=== PATIENT | female | born 1930 | race Caucasian/White ===

== ENCOUNTER → 2016-08-09 | Outpatient (REF) | payer MEDICARE, MEDICAID ==
[~2016-08-09] MED LIST: ACET-654 PO; ACET650S3 PR; AMLO10TAB; AMLO5TAB2 PO; ARIC5TAB; ARTISOL2 OU; ASPI81TAEC PO; BABY81CH; DIOV320T; ENEMENE3 PR; GLUC1INJ11 INJ; GLUC500T; LIPI10TA; LOPR100T; LOSA100T36 PO; METF500T PO; METO-207 PO; METO-209 PO; MILKSUS PO; ONDA4TAB6 PO; PANT40TA2 PO; RANI150T PO; REME15TA PO; SUCR1TA PO; TOPR100T; ZOLO25TA
[2016-08-09 21:19] LABS: MEAN CORPUSCULAR HEMOGLOBIN 28.6 pg (27.0-33.0); MEAN CORPUSCULAR HGB CONC 32.7 g/dl (32.0-36.5); MEAN CORPUSCULAR VOLUME 87.7 fl (80.0-96.0); RED CELL DISTRIBUTION WIDTH 13.4 % (11.5-14.5); WHITE BLOOD COUNT 11.4 K/mm3 (4.0-10.0)
== END ==
LOC: SKLAB4 20:19
PROVIDERS: ATTEND Family Medicine
DX: R11.2 Nausea with vomiting, unspecified (principal)

== ENCOUNTER 2016-08-10 23:47 | Inpatient (IN) | payer MEDICARE, MEDICAID ==
[~2016-08-10] VITALS: Ht 167.6 cm; Wt 63.9 kg
[~2016-08-10 23:47] MED LIST changes: -ACET-654 PO; -ACET650S3 PR; -AMLO5TAB2 PO; -ARTISOL2 OU; -ASPI81TAEC PO; -ENEMENE3 PR; -GLUC1INJ11 INJ; -LOSA100T36 PO; -METF500T PO; -METO-207 PO; -METO-209 PO; -MILKSUS PO; -ONDA4TAB6 PO; -PANT40TA2 PO; -RANI150T PO; -REME15TA PO; -SUCR1TA PO
[2016-08-11 00:24] LABS: BASO % 0.2 % (0.0-1.0); EOS # 0.1 K/mm3 (0.0-0.50); LARGE UNSTAINED CELL # 0.1 K/mm3 (0.0-0.4); LYMPH # 0.9 K/mm3 (1.5-4.5); LYMPH % 8.8 % (24.0-44.0); MEAN CORPUSCULAR HEMOGLOBIN 28.8 pg (27.0-33.0); MEAN CORPUSCULAR HGB CONC 32.2 g/dl (32.0-36.5); MEAN CORPUSCULAR VOLUME 89.6 fl (80.0-96.0); MONO # 0.3 K/mm3 (0.0-0.8); MONO % 2.9 % (0.0-5.0); NEUTROPHILS # 8.5 K/mm3 (1.8-7.7); NEUTROPHILS % 86.1 % (36.0-66.0); PLATELET COUNT, AUTOMATED 253 k/mm3 (150-450); RED CELL DISTRIBUTION WIDTH 12.9 % (11.5-14.5); WHITE BLOOD COUNT 9.9 K/mm3 (4.0-10.0)
[2016-08-11] MEDS ORDERED: ONDANSETRON 4MG/2ML VIAL (J2405) As Ordered ONE (00:39)
[2016-08-11] MEDS ORDERED: PANTOPRAZOLE 40MG INJ (PROTONIX) (C9113) As Ordered ONE ×2 (00:39→07:37)
[2016-08-11 01:43] LABS: ALBUMIN 2.8 GM/DL (3.2-5.2); ALBUMIN/GLOBULIN RATIO 0.85 (1.00-1.93); ALKALINE PHOSPHATASE 94 U/L (45-117); ALT/SGPT 9 U/L (12-78); ANION GAP 18 MEQ/L (8-16); AST/SGOT 6 U/L (15-37); BILIRUBIN,DIRECT 0.2 MG/DL (0.0-0.2); BILIRUBIN,TOTAL 0.6 MG/DL (0.2-1.0); BLOOD UREA NITROGEN 70 MG/DL (7-18); CALCIUM LEVEL 8.5 MG/DL (8.8-10.2); CARBON DIOXIDE LEVEL 21 MEQ/L (21-32); CHLORIDE LEVEL 107 MEQ/L (98-107); CREATININE FOR GFR 2.04 MG/DL (0.55-1.02); GLOMERULAR FILTRATION RATE 24.6 (>32); GLUCOSE, FASTING 198 MG/DL (83-110); POTASSIUM SERUM 4.8 MEQ/L (3.5-5.1); SODIUM LEVEL 146 MEQ/L (136-145); TOTAL PROTEIN 6.1 GM/DL (6.4-8.2)
[2016-08-11] MEDS ORDERED: METO-209 PO (01:48)
[2016-08-11] MEDS ORDERED: ASPI81TAEC PO (01:48)
[2016-08-11] MEDS ORDERED: LOSA100T36 PO (01:48)
[2016-08-11] MEDS ORDERED: ACET-654 PO (01:48)
[2016-08-11] MEDS ORDERED: RANI150T PO (01:48)
[2016-08-11] MEDS ORDERED: METF500T PO (01:48)
[2016-08-11] MEDS ORDERED: REME15TA PO (01:48)
[2016-08-11] MEDS ORDERED: ACET650S3 PR (01:48)
[2016-08-11] MEDS ORDERED: ONDA4TAB6 PO (01:48)
[2016-08-11] MEDS ORDERED: AMLO5TAB2 PO (01:48)
[2016-08-11] MEDS ORDERED: ARTISOL2 OU (01:48)
[2016-08-11] MEDS ORDERED: ENEMENE3 PR (01:50)
[2016-08-11] MEDS ORDERED: GLUC1INJ11 INJ (01:50)
[2016-08-11] MEDS ORDERED: MILKSUS PO (01:50)
[2016-08-11 02:19] LABS: INR 1.06
[2016-08-11 05:00] VITALS: BP 118/57
[2016-08-11] MEDS: NS 1,000 ML IV SCH ×3 (05:21→23:21)
[2016-08-11] MEDS ORDERED: GLUCAGON FOR INJ 1 MG VIAL (J1610) SC PRN (06:45)
[2016-08-11] MEDS ORDERED: DEXTROSE 50% 50 ML SYRINGE IV PRN (06:45)
[2016-08-11] MEDS ORDERED: GLUCOSE 4 GM CHEW TABLET PO PRN (06:45)
[2016-08-11 07:30] LABS: CALCIUM LEVEL 8.2 MG/DL (8.8-10.2); CREATININE FOR GFR 1.88 MG/DL (0.55-1.02); GLOMERULAR FILTRATION RATE 27.1 (>32); POTASSIUM SERUM 4.3 MEQ/L (3.5-5.1)
[2016-08-11] MEDS: HumaLOG INSULIN (NovoLOG) PER UNIT SC SCH ×4 (07:30→20:30)
[2016-08-11] MEDS ORDERED: amLODIPine 5 MG TAB As Ordered ONE (07:36)
[2016-08-11] MEDS ORDERED: METOPROLOL TART 50 MG TAB As Ordered ONE (07:37)
[2016-08-11] MEDS: PANTOPRAZOLE 40MG INJ (PROTONIX) (C9113) IV SCH ×2 (07:48→20:30)
[2016-08-11] MEDS: amLODIPine 5 MG TAB PO SCH (07:49)
[2016-08-11 08:00] VITALS: BP 120/56
--- NOTE | 2016-08-11 08:12 | HPE ---
DATE OF ADMISSION: 08/11/2016 PRIMARY CARE PHYSICIAN: Dr. Kun Stevenson CHIEF COMPLAINT: Patient was sent from [facility] for several episodes of vomiting and one episode of coffee ground emesis. PAST MEDICAL HISTORY: 1. History of diabetes. 2. Hypertension. 3. Hyperlipidemia. 4. Dementia. 5. History of rectal cancer status post surgery with colostomy and vaginectomy. 6. History of deep vein thrombosis of the left leg, no longer on anticoagulation. 7. Depression. HISTORY OF PRESENT ILLNESS: This is an 85-year-old female who is a resident of [facility] who had several episodes of vomiting four days ago which resolved by itself. Then she started vomiting again today. After several episodes, she had one episode of vomiting with coffee ground emesis in it, so the patient was sent to the emergency room for evaluation. As per the daughters who are at bedside, the patient has been unable to keep food down since yesterday. In the emergency department (ED), the patient was found to have a stable hemoglobin; however, seemed to be dehydrated with a sodium of 146 and a creatinine of 2, which are both raised from baseline. The patient was started on IV fluids. During her stay in the emergency room, the patient did not have any further coffee ground emesis. The hospitalist service was consulted for admission for vomiting, dehydration and acute kidney injury and possibly coffee ground emesis. PAST SURGICAL HISTORY: 1. Hysterectomy. 2. Colostomy. 3. Surgery of rectum and colon for cancer. FAMILY HISTORY: She is a resident of [facility], has daughters living in town. SOCIAL HISTORY: She is a nonsmoker. Does not abuse alcohol or recreational drugs. HOME MEDICATIONS: - Tylenol 650 mg by mouth every 4 hours as needed - Tylenol 650 mg per rectum (AR) every 4 hours as needed - amlodipine 5 mg daily - Artificial Tears one solution both eyes four times a day - aspirin 81 mg daily - Glucagon 1 mg as directed - losartan potassium 100 mg by mouth daily - metformin 500 mg by mouth daily - metoprolol succinate 100 mg by mouth daily - milk of magnesia 30 mL by mouth daily as needed constipation - mirtazapine 15 mg at bedtime - ondansetron 4 mg by mouth every 6 hours as needed - ranitidine 1 mg by mouth twice a day - Fleet enema one enema daily as needed constipation REVIEW OF SYSTEMS: All ten point review of systems are negative except those mentioned in history of present illness (HPI). The patient denies any pain. Denies any diarrhea. Denies any abdominal pain. The patient denies any chest pain, any cough or phlegm. Denies any chills or fever. PHYSICAL EXAM: GENERAL: Patient awake, alert and oriented times 3, lying down on the stretcher in no acute distress. HEENT: Normocephalic, atraumatic. Dry mucous membranes. Anicteric eyes. CHEST: Clear to auscultation. CARDIOVASCULAR: S1, S2, regular. ABDOMEN: Soft. Nontender. Bowel sounds present. EXTREMITIES: No edema. LABORATORY DATA: WBC 9.9, hemoglobin 12.5, platelets 253. Sodium 146, potassium 4.8, chloride 107, bicarbonate 21, BUN 70, creatinine 2. Liver function tests (LFTs) are normal. Lipase 61. Cardiac enzymes are not elevated. Coagulation profile is normal. ASSESSMENT AND PLAN: This is an 85-year-old female admitted for intractable vomiting, dehydration, acute kidney injury and coffee ground emesis. 1. Vomiting and coffee ground emesis. Reason unknown. Could be due to gastritis or peptic ulcer disease versus viral infection. Will continue the patient on proton pump inhibitor (PPI) and ondansetron. 2. Dehydration. Will continue the patient on IV with normal saline. 3. Acute kidney injury due to intractable vomiting and dehydration. 4. Diabetes. Will continue the patient on sliding scale insulin. Will hold metformin while in the hospital. 5. Hypertension. Will hold losartan because of increased creatinine. Will continue with metoprolol and amlodipine. 6. Hyperlipidemia. Not on any medications. 7. Anxiety, depression and dementia. Will continue with mirtazapine. 8. Deep vein thrombosis (DVT) prophylaxis. Has been ordered. 9. Gastrointestinal (GI) prophylaxis. Has been ordered. 10. History of deep vein thrombosis, but most recent ultrasound in June does not show any deep vein thrombosis. Patient is not on any anticoagulation.
[2016-08-11] MEDS: METOPROLOL SUCC (TopROL XL) 50MG **XL** TAB PO SCH (08:51)
--- NOTE | 2016-08-11 11:17 | IPN ---
DATE: 08/11/2016 Brooke was seen in the emergency room (ER) on an interim bed. She was admitted with coffee ground emesis, presumed upper gastrointestinal (GI) bleed. I reviewed her old records available through [facility]. Most recent comprehensive evaluation was a preop done on 10/11/2015. At that time, she was having type 2 diabetes, hypertension, hyperlipidemia, and dementia. Surgical history was colostomy and colon resection in the for colon cancer. Allergies: None were known. Social History: [facility] resident since 02/2012. Nonsmoker. . Outpatient medicines included aspirin as well as metoprolol and amlodipine, metformin, Remeron and losartan, as well as, Artificial Tears. Physical Exam: Vital Signs per flow sheet. Blood pressure 125/85, pulse 80, when I saw her. General Appearance: She was nonverbal. She was drowsy. HEENT: Unremarkable. Bilateral soft carotid bruits. Lungs: Clear. Heart: Regular rate and rhythm. 1/6 systolic ejection murmur. Abdomen: Soft. Nontender. No masses. No peripheral edema. Labs: Admission hemoglobin 12.5, after hydration six hours later was 11. INR was normal. Sodium 145, potassium 4.3, BUN 69, creatinine 1.9. Bicarbonate was 19. Impression: 1. Presumed upper GI bleed with coffee ground emesis. She is on IV Protonix 40 mg every 12 hours. She is currently nothing by mouth (n.p.o.). If her hemoglobin and hematocrit (H and H) remains stable, she won't require transfusion. We will consult gastroenterology, though I am not sure that she needs to proceed to esophagogastroduodenoscopy (EGD), but will defer to their opinion on this. 2. Acute kidney injury. Baseline creatinine is 0.9. Some of this might be from the metformin. She is getting normal saline 100 an hour. That should be sufficient to provide enough hydration at her age. Recheck labs in the morning. 3. Dementia. Stable. 4. Hypertension. She is on amlodipine and metoprolol. Pressures are steady. 5. Advanced directives. Per admitting physician, she has DO NOT RESUSCITATE (DNR) status. I do not see where that was ordered. Her paper chart cannot be located right now. I will have to confirm the DNR status once we get our hands on her [facility] Keep records.
--- NOTE | 2016-08-11 13:56 | EDDOCDS ---
Physician Documentation [facility] Name: Brooke Tanner Age: 85 yrs Sex: Female : 1930 Arrival Date: 08/10/2016 Time: 23:47 Bed Admit Hold Private MD: Kun Stevenson M.D. Disposition: 08/11/16 01:56 Hospitalization ordered by Yadira Stewart for Inpatient Admission. Preliminary diagnosis are Hematemesis, Unspecified injury of kidney. - Bed requested for 4 [place]. - Status is Inpatient Admission. dwg - Condition is Stable. - Problem is new. - Symptoms have improved. Historical: - Allergies: no known allergies; - Home Meds: 1. ranitidine HCl 150 mg Oral cap 1 cap 2 times per day 2. ondansetron HCl 4 mg Oral tab every 6 hours (Last dose: 08/10/2016 22:00) 3. Cozaar 100 mg Oral tab 1 tab once daily 4. Remeron 15 mg Oral tab 1 tab once daily 5. artificial tears(hypromellose) 0.3 % Opht drop 1 drop four times a day (Last dose: 08/10/2016 22:49) 6. metformin 500 mg Oral Tb24 1 tab once daily (Last dose: 08/10/2016 08:31) 7. Tylenol 325 mg Oral tab 2 tabs every 4 hours (Last dose: 08/10/2016 06:53) 8. Norvasc 5 mg oral tab 1 tab once daily 9. aspirin 81 mg Oral tab 1 tab once daily 10. metoprolol tartrate 100 mg Oral tab 1 tab once daily (Last dose: 08/10/2016 08:31) 11. fleets enema 1 unit daily as needed 12. Milk of Magnesia 2400 mg/10 ml Oral 10 mL once daily - PMHx: Hypercholesterolemia; Dementia; dysphagia; Diabetes - NIDDM: controlled; Depression; Hypertension; hyperlipidemia; - PSHx: COLOSTOMY; Colon Resection (2001); - Family history: Not pertinent. - : The pt / caregiver states he / she is not on anticoagulants. Home medication list is obtained from the facility SEP. - Exposure Risk Screening:: None identified. Vital Signs: 08/10 23:53 BP 110 / 62 LA Supine (auto/reg); Pulse 103 MON; Resp 22 S; Temp 98.3(O); Pulse Ox 92% cln on R/A; Weight 63.5 kg / 139.99 lbs (R); Height 5 ft. 8 in. (172.72 cm) (R); Pain 0/10; 08/11 02:22 BP 145 / 65 (auto/); af2 02:22 Pulse 98 MON; Pulse Ox 95% ; af2 03:22 BP 138 / 64 (auto/); af2 03:22 Pulse 94 MON; Pulse Ox 92% ; af2 08/10 23:53 Body Mass Index 21.29 (63.50 kg, 172.72 cm) cln MDM: 08/10 23:58 NS 0.9% 1000 ml IV at bolus once ordered. fg 23:58 Ondansetron 4 mg IVP once ordered. fg 23:58 IV Saline Lock ordered. fg 23:58 Undress patient appropriately for examination ordered. fg 23:58 pantoprazole 40 mg IV at bolus once ordered. fg 23:59 Basic Metabolic Profile Ordered. EDMS 23:59 CBC with Diff Ordered. EDMS 23:59 Cardiac Injury Profile Ordered. EDMS 23:59 Lipase Ordered. EDMS 23:59 Liver Profile Ordered. EDMS 23:59 Troponin Ordered. EDMS 23:59 Type & Screen Ordered. EDMS 23:59 Urinalysis Ordered. EDMS 23:59 Urine Culture Ordered. EDMS 23:59 NOTHING BY MOUTH+DIET ordered. EDMS 08/11 01:14 PROTHROMBIN TIME PROFILE\E\INR Ordered. EDMS 01:18 BED REQUEST+ADM ordered. EDMS 01:42 Financial registration complete. hs2 01:42 [facility] Payment Agreement was scanned into [employer] and attached to record. hs2 01:55 BED REQUEST+ADM ordered. EDMS 02:40 Admission / Observation Status ordered. EDMS 02:40 OTHER CUSTOM DIETS ordered. EDMS 02:44 HEMOGLOBIN & HEMATOCRIT Ordered. EDMS 02:44 BASIC METABOLIC PROFILE Ordered. EDMS 11:05 COMPLETE BLOOD COUNT Ordered. EDMS 13:33 T-Sheet-- Draft Copy was scanned into [employer] and attached to record. gb Administered Medications: 00:47 Drug: NS 0.9% 1000 ml [sodium chloride 0.9 % intravenous solution] Route: IV; Rate: af2 bolus; Site: right wrist; 00:47 Drug: Ondansetron 4 mg [ondansetron HCl 2 mg/mL intravenous solution (2 mL)] Route: af2 IVP; Site: right wrist; 00:47 Drug: pantoprazole 40 mg [pantoprazole 40 mg intravenous solution] Route: IV; Rate: af2 bolus; Site: right wrist; Signatures: Dispatcher [employer] EDMS Gage Jessica, Steam Table Associate Unit deg Kyle Rodriguez RN RN dwg Susan Pelayo, Reg Reg gb Beatriz Towsnend RN RN dsf Fulton, Amber, RN RN af2 Shelly Vicente MD MD Tomeka Metzger, Reg Reg hs2 The chart was reviewed and I authenticate all verbal orders and agree with the evaluation and treatment provided.Corrections: (The following items were deleted from the chart) 01:14 08/10 23:59 PARTIAL THROMBOPLASTIN TIME+LAB ordered. EDMS EDMS 08/11 11:04 02:44 HEMOGLOBIN & HEMATOCRIT ordered. EDMS EDMS 11:05 02:44 HEMOGLOBIN & HEMATOCRIT ordered. EDMS EDMS Attachments: 01:42 [facility] Payment Agreement hs2 13:33 T-Sheet-- Draft Copy gb MTDD
--- NOTE | 2016-08-11 13:56 | EDDOCDS ---
Nurse's Notes [facility] Name: Brooke Tanner Age: 85 yrs Sex: Female : 1930 Arrival Date: 08/10/2016 Time: 23:47 Bed Admit Hold Private MD: Kun Stevenson M.D. Diagnosis: Hematemesis;Unspecified injury of kidney Presentation: 08/10 23:51 Presenting complaint: EMS states: pt sent from [facility] due to coffee ground emesis x 2 af2 days. Suicide/Homicide risk assessment- the patient denies having any suicidal and/or homicidal ideations and does not present with any other emotional, behavioral or mental health complaints. Status: Patient is not a stamp machine servicer or dependent. Transition of care: patient was received from [facility]. 23:51 Method Of Arrival: Ambulance af2 08/11 00:19 Adult Sepsis Screening: The patient does not have new or worsening altered mentation. af2 Patient has a respiratory rate of greater than or equal to 22 (1 point). Systolic blood pressure is greater than 100. Patient has a qSOFA score of 1- Negative Sepsis Screen. 00:19 Acuity: RANDAL Level 3 af2 Triage Assessment: 08/10 23:51 General: Appears in no apparent distress, comfortable, Behavior is appropriate for age, af2 cooperative. Pain: Denies pain. The patient is triaged at the bedside. See Assessment in Nurses Notes section of ED record. Neurological: Level of Consciousness is awake, alert, obeys commands, Oriented to person, place, time. Respiratory: Airway is patent Respiratory effort is even, unlabored. GI: Reports nausea, vomiting. Derm: Skin is normal. Historical: - Allergies: no known allergies; - Home Meds: 1. ranitidine HCl 150 mg Oral cap 1 cap 2 times per day 2. ondansetron HCl 4 mg Oral tab every 6 hours (Last dose: 08/10/2016 22:00) 3. Cozaar 100 mg Oral tab 1 tab once daily 4. Remeron 15 mg Oral tab 1 tab once daily 5. artificial tears(hypromellose) 0.3 % Opht drop 1 drop four times a day (Last dose: 08/10/2016 22:49) 6. metformin 500 mg Oral Tb24 1 tab once daily (Last dose: 08/10/2016 08:31) 7. Tylenol 325 mg Oral tab 2 tabs every 4 hours (Last dose: 08/10/2016 06:53) 8. Norvasc 5 mg oral tab 1 tab once daily 9. aspirin 81 mg Oral tab 1 tab once daily 10. metoprolol tartrate 100 mg Oral tab 1 tab once daily (Last dose: 08/10/2016 08:31) 11. fleets enema 1 unit daily as needed 12. Milk of Magnesia 2400 mg/10 ml Oral 10 mL once daily - PMHx: Hypercholesterolemia; Dementia; dysphagia; Diabetes - NIDDM: controlled; Depression; Hypertension; hyperlipidemia; - PSHx: COLOSTOMY; Colon Resection (2001); - Family history: Not pertinent. - : The pt / caregiver states he / she is not on anticoagulants. Home medication list is obtained from the facility MAR. - Exposure Risk Screening:: None identified. Screenin/12 00:12 Screening information is obtained from prior medical records. Fall risk: At risk due to dsf age, The following interventions are performed due to a positive Fall Risk Screen: Fall Risk is added to Special Handling on the patient Summary Screen. A Fall Risk Bracelet was applied to the patient. Side Rails are placed in the up position. A Call Anderson is given with instruction to call for help when getting out of bed. Fall Alert bracelet is placed on the patient. Assistance ADL's: Requires assistance with meal preparation, this assistance is provided by residence staff, bathing, assistance is provided by residence staff, dressing, assistance is provided by residence staff, toileting, assistance is provided by residence staff, ambulation, assistance is provided by residence staff, housework, assistance is provided by residence staff, medication administration, assistance is provided by residence staff. Abuse/DV Screen: The patient / caregiver reports he/she is: not in a situation that causes fear, pain or injury. Nutritional screening: No deficits noted. Advance Directives: Currently, there is a health care proxy, Carolyn Tanner. There is an active DNR order and the pt has a copy here at this time. home support is adequate. Assessment: 00:20 General: Appears in no apparent distress, comfortable, Behavior is appropriate for age, af2 cooperative. Pain: Denies pain. Neurological: Level of Consciousness is awake, alert, obeys commands, Oriented to person, place. Cardiovascular: Heart tones S1 S2 present. Respiratory: Airway is patent Respiratory effort is even, unlabored, Respiratory pattern is regular, symmetrical, Breath sounds are clear bilaterally. GI: Abdomen is non- distended Bowel sounds present X 4 quads. Abd is soft and non tender X 4 quads. Reports nausea, vomiting, coffee ground emesis. Derm: Skin is normal. 01:20 General: Appears in no apparent distress, comfortable, Behavior is appropriate for age, af2 cooperative. Neurological: Level of Consciousness is awake, alert, obeys commands, Oriented to person, place. Respiratory: Airway is patent Respiratory effort is even, unlabored. GI: Denies nausea. Derm: Skin is normal. 02:26 General: Appears in no apparent distress, comfortable, Behavior is appropriate for age, af2 cooperative. Neurological: Level of Consciousness is awake, alert, obeys commands, Oriented to person, place. Respiratory: Airway is patent Respiratory effort is even, unlabored. Derm: Skin is normal. 03:36 General: Appears in no apparent distress, comfortable, Behavior is appropriate for age, af2 cooperative. Neurological: Level of Consciousness is awake, alert, obeys commands. Respiratory: Airway is patent Respiratory effort is even, unlabored, Respiratory pattern is regular, symmetrical. Derm: Skin is normal. 04:17 General: Appears in no apparent distress, comfortable, Behavior is appropriate for age, af2 cooperative. Neurological: Level of Consciousness is awake, alert, obeys commands, Oriented to person, place. Respiratory: Airway is patent Respiratory effort is even, unlabored. Derm: Skin is normal. 04:42 General: report given to ana hines. for further documentation, refer to [facility].. af2 Vital Signs: 08/10 23:53 BP 110 / 62 LA Supine (auto/reg); Pulse 103 MON; Resp 22 S; Temp 98.3(O); Pulse Ox 92% cln on R/A; Weight 63.5 kg (R); Height 5 ft. 8 in. (172.72 cm) (R); Pain 0/10; 08/11 02:22 BP 145 / 65 (auto/); af2 02:22 Pulse 98 MON; Pulse Ox 95% ; af2 03:22 BP 138 / 64 (auto/); af2 03:22 Pulse 94 MON; Pulse Ox 92% ; af2 01/11 23:53 Body Mass Index 21.29 (63.50 kg, 172.72 cm) cln ED Course: 08/10 23:49 Patient visited by Lam Flynn, Sand Drier. ml3 23:49 Kun Stevenson is Private Physician. ml3 23:49 Anita Rojas RN is Primary Nurse. ml3 23:49 Patient moved to Waiting ml3 23:49 Patient moved to 8 ml3 23:54 Patient visited by Kindra Person PCA. cln 23:54 Pt greeted and oriented to ED. Patient advised of names of staff involved in care, cln location of call anderson, wait times and NPO status. Patient has correct armband on for positive identification. Placed in gown. Bed in low position. Call light in reach. Side rails up X 1. 23:56 Shelly Vciente MD is Attending Physician. fg 23:57 Patient visited by Shelly Vicente MD. fg 08/11 00:19 Triage Initiated af2 00:19 The patient / caregiver is instructed regarding the plan of care and ED course. Cardiac af2 monitor on. Pulse ox on. NIBP on. 00:19 Inserted saline lock: 20 gauge in right antecubital area and blood collected. The af2 patient tolerated the procedure well. 00:21 Patient visited by Anita Rojas RN. af2 00:48 Patient visited by Anita Rojas RN. af2 00:48 No procedures done that require assistance. af2 01:42 [facility] Payment Agreement was scanned into [employer] and attached to record. hs2 01:44 Patient visited by Anita Rojas RN. af2 01:47 Patient name changed from Brooke\S\\S\Mathous\S\ to Brooke\S\ \S\Mathous. EDMS 01:55 Yadira Stewart is Hospitalizing Provider. fg 01:56 Patient visited by Anita Rojas RN. af2 01:56 Patient visited by Anita Rojas RN. af2 02:27 Patient visited by Anita Rojas RN. af2 02:44 Patient moved to Admit Hold cz 03:37 Patient visited by Anita Rojas RN. af2 04:18 Patient visited by Anita Rojas RN. af2 04:42 Patient visited by Anita Rojas RN. af2 06:59 Primary Nurse role handed off by Anita Rojas RN mcp 09:03 notified of Patients O2 sats going down to 88% on RA with good pleth. Notified Aspen Raines RN. 12:38 Patient moved to 30 ct3 13:07 Patient moved to Admit Hold jo3 13:33 T-Sheet-- Draft Copy was scanned into [employer] and attached to record. gb Administered Medications: 00:47 Drug: NS 0.9% 1000 ml [sodium chloride 0.9 % intravenous solution] Route: IV; Rate: af2 bolus; Site: right wrist; 00:47 Drug: Ondansetron 4 mg [ondansetron HCl 2 mg/mL intravenous solution (2 mL)] Route: af2 IVP; Site: right wrist; 00:47 Drug: pantoprazole 40 mg [pantoprazole 40 mg intravenous solution] Route: IV; Rate: af2 bolus; Site: right wrist; Order Results: Lab Order: Basic Metabolic Profile; [facility] 08/11/16 00:36 Test: GLUCOSE, FASTING; Value: 198; Range: 83-110; Abnormal: Above high normal; Units: MG/DL; Status: F Test: BLOOD UREA NITROGEN; Value: 70; Range: 7-18; Abnormal: Above high normal; Units: MG/DL; Status: F Test: CREATININE FOR GFR; Value: 2.04; Range: 0.55-1.02; Abnormal: Above high normal; Units: MG/DL; Status: F Test: GLOMERULAR FILTRATION RATE; Value: 24.6; Range: >32; Abnormal: Below low normal; Status: F Test: SODIUM LEVEL; Value: 146; Range: 136-145; Abnormal: Above high normal; Units: MEQ/L; Status: F Test: POTASSIUM SERUM; Value: 4.8; Range: 3.5-5.1; Units: MEQ/L; Status: F Test: CHLORIDE LEVEL; Value: 107; Range: 98-107; Units: MEQ/L; Status: F Test: CARBON DIOXIDE LEVEL; Value: 21; Range: 21-32; Units: MEQ/L; Status: F Test: ANION GAP; Value: 18; Range: 8-16; Abnormal: Above high normal; Units: MEQ/L; Status: F Test: CALCIUM LEVEL; Value: 8.5; Range: 8.8-10.2; Abnormal: Below low normal; Units: MG/DL; Status: F Test Note: ; Units are mL/min/1.73 m2 Chronic Kidney Disease Staging per NKF: Stage I & II GFR >=60 Normal to Mildly Decreased Stage III GFR 30-59 Moderately Decreased Stage IV GFR 15-29 Severely Decreased Stage V GFR <15 Very Little GFR Left ESRD GFR <15 on UPHOLSTERY CUTTER Lab Order: CBC with Diff; SPEC'M 08/11/16 00:14 Test: WHITE BLOOD COUNT; Value: 9.9; Range: 4.0-10.0; Units: K/mm3; Status: F Test: RED BLOOD COUNT; Value: 4.33; Range: 4.00-5.40; Units: M/mm3; Status: F Test: HEMOGLOBIN; Value: 12.5; Range: 12.0-16.0; Units: g/dl; Status: F Test: HEMATOCRIT; Value: 38.8; Range: 36.0-47.0; Units: %; Status: F Test: MEAN CORPUSCULAR VOLUME; Value: 89.6; Range: 80.0-96.0; Units: fl; Status: F Test: MEAN CORPUSCULAR HEMOGLOBIN; Value: 28.8; Range: 27.0-33.0; Units: pg; Status: F Test: MEAN CORPUSCULAR HGB CONC; Value: 32.2; Range: 32.0-36.5; Units: g/dl; Status: F Test: RED CELL DISTRIBUTION WIDTH; Value: 12.9; Range: 11.5-14.5; Units: %; Status: F Test: PLATELET COUNT, AUTOMATED; Value: 253; Range: 150-450; Units: k/mm3; Status: F Test: NEUTROPHILS %; Value: 86.1; Range: 36.0-66.0; Abnormal: Above high normal; Units: %; Status: F Test: LYMPH %; Value: 8.8; Range: 24.0-44.0; Abnormal: Below low normal; Units: %; Status: F Test: MONO %; Value: 2.9; Range: 0.0-5.0; Units: %; Status: F Test: EOS %; Value: 1.0; Range: 0.0-3.0; Units: %; Status: F Test: BASO %; Value: 0.2; Range: 0.0-1.0; Units: %; Status: F Test: LARGE UNSTAINED CELL %; Value: 1.0; Range: 0.0-4.0; Units: %; Status: F Test: NEUTROPHILS #; Value: 8.5; Range: 1.8-7.7; Abnormal: Above high normal; Units: K/mm3; Status: F Test: LYMPH #; Value: 0.9; Range: 1.5-4.5; Abnormal: Below low normal; Units: K/mm3; Status: F Test: MONO #; Value: 0.3; Range: 0.0-0.8; Units: K/mm3; Status: F Test: EOS #; Value: 0.1; Range: 0.0-0.50; Units: K/mm3; Status: F Test: BASO #; Value: 0.0; Range: 0.0-0.2; Units: K/mm3; Status: F Test: LARGE UNSTAINED CELL #; Value: 0.1; Range: 0.0-0.4; Units: K/mm3; Status: F Lab Order: Cardiac Injury Profile; SPEC'M 08/11/16 00:36 Test: CPK CREATINE PHOSPHOKINASE; Value: 25; Range: 26-192; Abnormal: Below low normal; Units: U/L; Status: F Test: CK-MB VALUE MASS; Value: 1.1; Range: 0.0-3.6; Units: NG/ML; Status: F Test: MB/CK RELATIVE INDEX; Value: 4.40; Range: < OR =4; Abnormal: Above high normal; Status: F Test Note: ; DIAGNOSIS CRITERIA MMB ng/ml Relative Index (RI) NON-AMI < or = 5 N/A LOPEZ ZONE > 5 < or = 4 AMI > 5 > 4 Lab Order: Lipase; SPEC'M 08/11/16 00:36 Test: LIPASE; Value: 61; Range: 73-393; Abnormal: Below low normal; Units: U/L; Status: F Lab Order: Liver Profile; SPEC'M 08/11/16 00:36 Test: AST/SGOT; Value: 6; Range: 15-37; Abnormal: Below low normal; Units: U/L; Status: F Test: ALT/SGPT; Value: 9; Range: 12-78; Abnormal: Below low normal; Units: U/L; Status: F Test: ALKALINE PHOSPHATASE; Value: 94; Range: 45-117; Units: U/L; Status: F Test: BILIRUBIN,TOTAL; Value: 0.6; Range: 0.2-1.0; Units: MG/DL; Status: F Test: BILIRUBIN,DIRECT; Value: 0.2; Range: 0.0-0.2; Units: MG/DL; Status: F Test: TOTAL PROTEIN; Value: 6.1; Range: 6.4-8.2; Abnormal: Below low normal; Units: GM/DL; Status: F Test: ALBUMIN; Value: 2.8; Range: 3.2-5.2; Abnormal: Below low normal; Units: GM/DL; Status: F Test: ALBUMIN/GLOBULIN RATIO; Value: 0.85; Range: 1.00-1.93; Abnormal: Below low normal; Status: F Lab Order: Troponin; SPEC'M 08/11/16 00:36 Test: TROPONIN I; Value: < 0.02; Range: < 0.10; Units: NG/ML; Status: F Test Note: ; Troponin I Reference Interval for Siemens [place] LOCI: 99th Percentile= 0.00-0.045 ng/ml Risk Stratification: <= 0.10 ng/ml Decreased Risk for Adverse Clinical Events. 0.10-1.50 ng/ml Increased Risk for Adverse Clinical Events. Evaluation of additional criterion and/or repeat testing in 2-6 hours is suggested to rule out myocardial damage. >= 1.50 ng/ml Indicative of Myocardial Injury. Lab Order: Type & Screen; SPEC'M 08/11/16 00:43 Test: BLOOD TYPE; Value: A POS; Status: F Test: AB SCREEN (INDIRECT TANVIR)GEL; Value: NEGATIVE; Status: F Lab Order: PROTHROMBIN TIME PROFILE\E\INR; SPEC'M 08/11/16 02:02 Test: PROTHROMBIN TIME; Value: 13.9; Range: 12.3-14.5; Units: SECONDS; Status: F Test: INR; Value: 1.06; Status: F Test Note: ; THERAPUTIC HUMAN INR VALUES INDICATIONS NORMAL RANGES PROPHYLAXIS/TREATMENT OF: VENOUS THROMBOSIS 2.0-3.0 PULMONARY EMBOLISM 2.0-3.0 PREVENTION OF SYSTEMIC EMBOLISM FROM: TISSUE HEART VALVES 2.0-3.0 ACUTE MYOCARDIAL INFARCTION 2.0-3.0 VALVULAR HEART DISEASE 2.0-3.0 ATRIAL FIBRILLATION 2.0-3.0 MECHANICAL VALVES(HIGH RISK) 2.5-3.5 RECURRENT MYOCARDIAL INFARCTION 2.5-3.5 Lab Order: HEMOGLOBIN & HEMATOCRIT; [facility] 08/11/16 06:57 Test: HEMOGLOBIN; Value: 11.0; Range: 12.0-16.0; Abnormal: Below low normal; Units: g/dl; Status: F Test: HEMATOCRIT; Value: 33.2; Range: 36.0-47.0; Abnormal: Below low normal; Units: %; Status: F Lab Order: BASIC METABOLIC PROFILE; [facility] 08/11/16 06:57 Test: GLUCOSE, FASTING; Value: 159; Range: 83-110; Abnormal: Above high normal; Units: MG/DL; Status: F Test: BLOOD UREA NITROGEN; Value: 69; Range: 7-18; Abnormal: Above high normal; Units: MG/DL; Status: F Test: CREATININE FOR GFR; Value: 1.88; Range: 0.55-1.02; Abnormal: Above high normal; Units: MG/DL; Status: F Test: GLOMERULAR FILTRATION RATE; Value: 27.1; Range: >32; Abnormal: Below low normal; Status: F Test: SODIUM LEVEL; Value: 145; Range: 136-145; Units: MEQ/L; Status: F Test: POTASSIUM SERUM; Value: 4.3; Range: 3.5-5.1; Units: MEQ/L; Status: F Test: CHLORIDE LEVEL; Value: 111; Range: 98-107; Abnormal: Above high normal; Units: MEQ/L; Status: F Test: CARBON DIOXIDE LEVEL; Value: 19; Range: 21-32; Abnormal: Below low normal; Units: MEQ/L; Status: F Test: ANION GAP; Value: 15; Range: 8-16; Units: MEQ/L; Status: F Test: CALCIUM LEVEL; Value: 8.2; Range: 8.8-10.2; Abnormal: Below low normal; Units: MG/DL; Status: F Test Note: ; Units are mL/min/1.73 m2 Chronic Kidney Disease Staging per NKF: Stage I & II GFR >=60 Normal to Mildly Decreased Stage III GFR 30-59 Moderately Decreased Stage IV GFR 15-29 Severely Decreased Stage V GFR <15 Very Little GFR Left ESRD GFR <15 on UPHOLSTERY CUTTER Lab Order: Fingerstick Blood Sugar; SPEC'M 08/11/16 11:31 Test: BEDSIDE GLUCOSE; Value: 128; Range: 83-110; Abnormal: Above high normal; Units: MG/DL; Status: F Outcome: 01:56 Decision to Hospitalize by Provider. fg 13:[address] [facility] Signatures: Dispatcher [employer] Kyle Ramirez RN Carolyn Gonzales RN RN mcp Zecher, Calvin, RN RN cz Barnhardt, Gloria, Reg Reg gb Gee, Lam, Sand Drier Unit ml3 Danielle Mejia,RN RN jo3 Sonia Raymundo, FIELD EVIDENCE TECHNICIAN FIELD EVIDENCE TECHNICIAN ct3 Beatriz Townsend,RN Danielle Stern,RN RN js13 Anita Rojas,RN RN jovanna2 Shelly Vicente MD MD Tomeka Metzger, Reg Reg hs2 Raza, Kindra, FIELD EVIDENCE TECHNICIAN FIELD EVIDENCE TECHNICIAN cln MTDD
[2016-08-11 19:44] LABS: MEAN CORPUSCULAR HEMOGLOBIN 28.4 pg (27.0-33.0); MEAN CORPUSCULAR HGB CONC 31.5 g/dl (32.0-36.5); MEAN CORPUSCULAR VOLUME 90.2 fl (80.0-96.0); RED CELL DISTRIBUTION WIDTH 13.8 % (11.5-14.5); WHITE BLOOD COUNT 8.2 K/mm3 (4.0-10.0)
[2016-08-11 20:20] VITALS: BP 145/63
[2016-08-11] MEDS: SUCRALFATE SUSP 1GM/10ML UD PO SCH ×2 (20:30→20:37)
[2016-08-12 05:25] VITALS: BP 159/75
[2016-08-12 06:28] LABS: BASO % 0.2 % (0.0-1.0); EOS % 0.4 % (0.0-3.0); LARGE UNSTAINED CELL # 0.1 K/mm3 (0.0-0.4); LARGE UNSTAINED CELL % 1.4 % (0.0-4.0); LYMPH # 0.8 K/mm3 (1.5-4.5); LYMPH % 14.8 % (24.0-44.0); MEAN CORPUSCULAR HEMOGLOBIN 29.1 pg (27.0-33.0); MEAN CORPUSCULAR HGB CONC 31.9 g/dl (32.0-36.5); MEAN CORPUSCULAR VOLUME 91.2 fl (80.0-96.0); MONO # 0.3 K/mm3 (0.0-0.8); MONO % 5.1 % (0.0-5.0); NEUTROPHILS # 4.4 K/mm3 (1.8-7.7); NEUTROPHILS % 78.1 % (36.0-66.0); PLATELET COUNT, AUTOMATED 194 k/mm3 (150-450); WHITE BLOOD COUNT 5.6 K/mm3 (4.0-10.0)
[2016-08-12 06:39] LABS: CREATININE FOR GFR 1.45 MG/DL (0.55-1.02); GLOMERULAR FILTRATION RATE 36.5 (>32); POTASSIUM SERUM 3.9 MEQ/L (3.5-5.1)
[2016-08-12] MEDS: HumaLOG INSULIN (NovoLOG) PER UNIT SC SCH ×4 (07:23→21:00)
[2016-08-12] MEDS: PANTOPRAZOLE 40MG INJ (PROTONIX) (C9113) IV SCH ×2 (08:05→20:27)
[2016-08-12] MEDS: ONDANSETRON 4MG/2ML VIAL (J2405) IV PRN ×2 (08:05→20:27)
[2016-08-12] MEDS: METOPROLOL SUCC (TopROL XL) 50MG **XL** TAB PO SCH ×2 (08:07→08:13)
[2016-08-12] MEDS: NS 1,000 ML IV SCH (08:07)
[2016-08-12] MEDS: amLODIPine 5 MG TAB PO SCH ×2 (08:07→08:13)
[2016-08-12] MEDS: SUCRALFATE SUSP 1GM/10ML UD PO SCH ×2 (08:07→21:00)
--- NOTE | 2016-08-12 11:03 | IPNPDOC ---
Assessment/Plan Date Seen The patient was seen on 08/12/16. Problems Problems: (1) TAMMI (acute kidney injury) Status: Acute Response to Treatment: Improving Problem Text: Renal Function improving with IVF, but sodium has gone up so I will adjust IVF (2) Vomiting Status: Acute Problem Text: Dr. Nava saw patient in consultation (note not available yet , but per nursing report, he does not want to scope her) He added Carafate, but pt refusing all po meds. (3) HTN (hypertension) Status: Chronic Problem Text: Pt refusing po meds - BP stable so far (4) Anemia Status: Acute Response to Treatment: Worse Problem Text: Hgb has drifted down - likely dilutional Monitor trend Plan / VTE VTE Prophylaxis Ordered?: Yes (SCDs/TEDS - hold off on anticoaguilation until hgb trend stabilizes and no sign of bleeding) Disposition Back to [facility] once stable Subjective Review of Systems CC/HPI The patient is a 85-year-old female admitted with a reason for visit of Vomiting ,Acute Kidney Injury. Events since last encounter C/O feeling thirsty but worried she will vomit. C/O abdominal pain. REfusing meds. spitting them back out at nurses telling them she is nauseated. Constitutional: Denies: Chills, Fever Pulmonary: Denies: Cough, Dyspnea Cardiovascular: Denies: Chest Pain, Palpitations Gastrointestinal: Reports: Abdominal Pain, Nausea, Vomiting, Denies: Constipation, Diarrhea Objective Physical Examination General Exam: Positive: Alert (sitting up in chair in hallway - pleasantly confused) ENT Exam: Negative: Mucous membr. moist/pink (mucous membranes dry) Chest Exam: Positive: Clear to auscultation, Normal air movement Heart Exam: Positive: Rate Normal, Negative: Murmurs Abdomen Exam: Positive: Normal bowel sounds, Soft, Tenderness (tender epigastrum with minimal palpation) Extremity Exam: Negative: Edema Skin Exam: Negative: Nl turgor and temperature (poor skin turgor) Vital Signs/I&O Vital Signs Date Time Temp Pulse Resp B/P Pulse Ox O2 Delivery O2 Flow Rate FiO2 08/12/16 05:25 96.5 83 17 159/75 91 Room Air I&O- Last 24 Hours up to 6 AM 08/12/16 06:00 Intake Total 60 ml Output Total 0 ml Balance 60 ml Laboratory Data Labs 24H Laboratory Tests 2 08/11/16 11:31: Bedside Glucose (Misc Panel) 128H 08/11/16 17:10: Bedside Glucose (Misc Panel) 126H 08/11/16 20:29: Bedside Glucose (Misc Panel) 122H 08/12/16 06:00: Anion Gap 12, White Blood Count 5.6, Red Blood Count 3.52L, Hemoglobin 10.3L, Hematocrit 32.1L, Mean Corpuscular Volume 91.2, Mean Corpuscular Hemoglobin 29.1 , Mean Corpuscular Hemoglobin Concent 31.9L, Red Cell Distribution Width 13.0, Platelet Count 194, Neutrophils (%) (Auto) 78.1H, Lymphocytes (%) (Auto) 14.8L, Monocytes (%) (Auto) 5.1H, Eosinophils (%) (Auto) 0.4, Basophils (%) (Auto) 0.2 , Neutrophils # (Auto) 4.4, Lymphocytes # (Auto) 0.8L, Monocytes # (Auto) 0.3, Eosinophils # (Auto) 0.0, Basophils # (Auto) 0.0, Blood Urea Nitrogen 57H, Creatinine 1.45H, Sodium Level 150H, Potassium Level 3.9, Chloride Level 118H, Carbon Dioxide Level 20L, Calcium Level 8.0L, Glomerular Filtration Rate 36.5, Large Unclassified Cells # 0.1, Large Unclassified Cells % 1.4 CBC/BMP Laboratory Tests 08/11/16 18:41 Red Blood Count 3.77 L, Mean Corpuscular Volume 90.2, Mean Corpuscular Hemoglobin 28.4, Mean Corpuscular Hemoglobin Concent 31.5 L, Red Cell Distribution Width 13.8 08/12/16 06:00 Red Blood Count 3.52 L, Mean Corpuscular Volume 91.2, Mean Corpuscular Hemoglobin 29.1, Mean Corpuscular Hemoglobin Concent 31.9 L, Red Cell Distribution Width 13.0, Calcium Level 8.0 L, Neutrophils (%) (Auto) 78.1 H, Lymphocytes (%) (Auto) 14.8 L, Monocytes (%) (Auto) 5.1 H, Eosinophils (%) (Auto ) 0.4, Basophils (%) (Auto) 0.2, Neutrophils # (Auto) 4.4, Lymphocytes # (Auto) 0.8 L, Monocytes # (Auto) 0.3, Eosinophils # (Auto) 0.0, Basophils # (Auto) 0.0 FSBS Laboratory Tests Test 08/11/16 11:31 08/11/16 17:10 08/11/16 20:29 Range/Units Bedside Glucose (Misc Panel) 128 126 122 83-110 MG/DL MANJU CANALES PA-C Aug 12, 2016 11:03
[2016-08-12] MEDS: NS 0.45% 1,000 ML IV SCH ×2 (11:48→20:27)
[2016-08-12 14:00] VITALS: BP 165/76
[2016-08-12 20:50] VITALS: BP 174/74
[2016-08-13] MEDS: ONDANSETRON 4MG/2ML VIAL (J2405) IV PRN (02:36)
[2016-08-13 05:56] LABS: BASO % 0.4 % (0.0-1.0); EOS # 0.1 K/mm3 (0.0-0.50); EOS % 0.9 % (0.0-3.0); LARGE UNSTAINED CELL # 0.1 K/mm3 (0.0-0.4); LARGE UNSTAINED CELL % 1.6 % (0.0-4.0); LYMPH # 0.7 K/mm3 (1.5-4.5); LYMPH % 10.5 % (24.0-44.0); MEAN CORPUSCULAR HEMOGLOBIN 29.8 pg (27.0-33.0); MEAN CORPUSCULAR HGB CONC 32.9 g/dl (32.0-36.5); MEAN CORPUSCULAR VOLUME 90.7 fl (80.0-96.0); MONO # 0.4 K/mm3 (0.0-0.8); MONO % 5.8 % (0.0-5.0); NEUTROPHILS # 5.1 K/mm3 (1.8-7.7); NEUTROPHILS % 80.8 % (36.0-66.0); PLATELET COUNT, AUTOMATED 201 k/mm3 (150-450); RED CELL DISTRIBUTION WIDTH 13.1 % (11.5-14.5); WHITE BLOOD COUNT 6.3 K/mm3 (4.0-10.0)
[2016-08-13 06:11] LABS: CALCIUM LEVEL 7.9 MG/DL (8.8-10.2); CREATININE FOR GFR 1.16 MG/DL (0.55-1.02); GLOMERULAR FILTRATION RATE 47.3 (>32); POTASSIUM SERUM 3.5 MEQ/L (3.5-5.1)
[2016-08-13 06:20] VITALS: BP 153/61
[2016-08-13] MEDS: KCL 10MEQ IN D5/0.45NS 1000ML 1,000 ML IV SCH ×2 (07:49→17:16)
[2016-08-13 08:35] VITALS: BP 158/62
[2016-08-13] MEDS: SUCRALFATE SUSP 1GM/10ML UD PO SCH ×2 (09:00→10:35)
[2016-08-13] MEDS: METOPROLOL SUCC (TopROL XL) 50MG **XL** TAB PO SCH (10:36)
[2016-08-13] MEDS: PANTOPRAZOLE 40MG INJ (PROTONIX) (C9113) IV SCH ×2 (10:37→20:56)
[2016-08-13] MEDS: DOCUSATE SODIUM 100 MG CAP PO SCH ×2 (10:37→21:00)
[2016-08-13 14:16] VITALS: BP 172/74
--- NOTE | 2016-08-13 14:29 | IPNPDOC ---
Assessment/Plan Date Seen The patient was seen on 08/13/16. Problems Problems: (1) TAMMI (acute kidney injury) Status: Acute Response to Treatment: Improving Problem Text: Renal Function improving with IVF, but sodium has gone up so I will adjust IVF 08/13 - COntinue IVF hydrationin effort to improve Na+. Switch to D51/2 NS (2) Vomiting Status: Acute Response to Treatment: Improving Problem Text: Dr. Nava saw patient in consultation (note not available yet , but per nursing report, he does not want to scope her) He added Carafate, but pt refusing all po meds. 08/13 - Taking liquids this am without vomiting or gagging. cOntinue IV protonix. Try to get her to take the Carafate. (3) HTN (hypertension) Status: Chronic Problem Text: Pt refusing po meds - BP stable so far 08/13 - BP high currently - Took her MEtoprolol this am. Monitor trend and add meds as needed. (4) Anemia Status: Acute Response to Treatment: Worse Problem Text: Hgb has drifted down - likely dilutional Monitor trend 08/13 - Hgb has stabilized Plan / VTE VTE Prophylaxis Ordered?: Yes (Start SQ heparin today) Disposition D/C Back to [facility] Monday if tolerating diet and taking adequate pos. Subjective Review of Systems CC/HPI The patient is a 85-year-old female admitted with a reason for visit of Vomiting ,Acute Kidney Injury. Events since last encounter Drinking Lisa julius per nursing. Patient denies nausea or abdominal pain today Constitutional: Denies: Chills, Fever Pulmonary: Denies: Cough, Dyspnea Cardiovascular: Denies: Chest Pain Gastrointestinal: Reports: Constipation (No BM since admission), Denies: Abdominal Pain, Diarrhea, Nausea, Vomiting Objective Physical Examination General Exam: Positive: Alert (sitting up in chair in hallway - pleasantly confused), No Acute Distress ENT Exam: Negative: Mucous membr. moist/pink (mucous membranes dry) Chest Exam: Positive: Clear to auscultation, Normal air movement Heart Exam: Positive: Rate Normal, Negative: Murmurs Abdomen Exam: Positive: Normal bowel sounds, Soft, Negative: Tenderness Extremity Exam: Negative: Edema Skin Exam: Negative: Nl turgor and temperature (poor skin turgor) Vital Signs/I&O Vital Signs Date Time Temp Pulse Resp B/P Pulse Ox O2 Delivery O2 Flow Rate FiO2 08/13/16 14:16 97.4 76 20 172/74 97 Room Air I&O- Last 24 Hours up to 6 AM 08/13/16 06:00 Intake Total 620 ml Output Total 0 ml Balance 620 ml Laboratory Data Labs 24H Laboratory Tests 2 08/12/16 16:35: Bedside Glucose (Misc Panel) 100 08/12/16 20:50: Bedside Glucose (Misc Panel) 101 08/13/16 05:22: Anion Gap 16, White Blood Count 6.3, Red Blood Count 3.61L, Hemoglobin 10.8L, Hematocrit 32.8L, Mean Corpuscular Volume 90.7, Mean Corpuscular Hemoglobin 29.8 , Mean Corpuscular Hemoglobin Concent 32.9, Red Cell Distribution Width 13.1, Platelet Count 201, Neutrophils (%) (Auto) 80.8H, Lymphocytes (%) (Auto) 10.5L, Monocytes (%) (Auto) 5.8H, Eosinophils (%) (Auto) 0.9, Basophils (%) (Auto) 0.4 , Neutrophils # (Auto) 5.1, Lymphocytes # (Auto) 0.7L, Monocytes # (Auto) 0.4, Eosinophils # (Auto) 0.1, Basophils # (Auto) 0.0, Blood Urea Nitrogen 45H, Creatinine 1.16H, Sodium Level 150H, Potassium Level 3.5, Chloride Level 115H, Carbon Dioxide Level 19L, Calcium Level 7.9L, Glomerular Filtration Rate 47.3, Large Unclassified Cells # 0.1, Large Unclassified Cells % 1.6 08/13/16 11:41: Bedside Glucose (Misc Panel) 127H CBC/BMP Laboratory Tests 08/13/16 05:22 Calcium Level 7.9 L, Red Blood Count 3.61 L, Mean Corpuscular Volume 90.7, Mean Corpuscular Hemoglobin 29.8, Mean Corpuscular Hemoglobin Concent 32.9, Red Cell Distribution Width 13.1, Neutrophils (%) (Auto) 80.8 H, Lymphocytes (%) (Auto) 10.5 L, Monocytes (%) (Auto) 5.8 H, Eosinophils (%) (Auto) 0.9, Basophils (%) ( Auto) 0.4, Neutrophils # (Auto) 5.1, Lymphocytes # (Auto) 0.7 L, Monocytes # ( Auto) 0.4, Eosinophils # (Auto) 0.1, Basophils # (Auto) 0.0 FSBS Laboratory Tests Test 08/12/16 16:35 08/12/16 20:50 08/13/16 11:41 Range/Units Bedside Glucose (Misc Panel) 100 101 127 83-110 MG/DL MANJU CANALES PA-C Aug 13, 2016 14:29
[2016-08-13 14:37] VITALS: BP 156/62
--- NOTE | 2016-08-13 14:56 | EDDOCDS ---
Physician Documentation [facility] Name: Brooke Tanner Age: 85 yrs Sex: Female : 1930 Arrival Date: 08/10/2016 Time: 23:47 Bed Admit Hold Private MD: Kun Stevenson M.D. Disposition: 08/11/16 01:56 Hospitalization ordered by Yadira Stewart for Inpatient Admission. Preliminary diagnosis are Hematemesis, Unspecified injury of kidney. - Bed requested for 4 [place]. - Status is Inpatient Admission. dwg - Condition is Stable. - Problem is new. - Symptoms have improved. Historical: - Allergies: no known allergies; - Home Meds: 1. ranitidine HCl 150 mg Oral cap 1 cap 2 times per day 2. ondansetron HCl 4 mg Oral tab every 6 hours (Last dose: 08/10/2016 22:00) 3. Cozaar 100 mg Oral tab 1 tab once daily 4. Remeron 15 mg Oral tab 1 tab once daily 5. artificial tears(hypromellose) 0.3 % Opht drop 1 drop four times a day (Last dose: 08/10/2016 22:49) 6. metformin 500 mg Oral Tb24 1 tab once daily (Last dose: 08/10/2016 08:31) 7. Tylenol 325 mg Oral tab 2 tabs every 4 hours (Last dose: 08/10/2016 06:53) 8. Norvasc 5 mg oral tab 1 tab once daily 9. aspirin 81 mg Oral tab 1 tab once daily 10. metoprolol tartrate 100 mg Oral tab 1 tab once daily (Last dose: 08/10/2016 08:31) 11. fleets enema 1 unit daily as needed 12. Milk of Magnesia 2400 mg/10 ml Oral 10 mL once daily - PMHx: Hypercholesterolemia; Dementia; dysphagia; Diabetes - NIDDM: controlled; Depression; Hypertension; hyperlipidemia; - PSHx: COLOSTOMY; Colon Resection (2001); - Family history: Not pertinent. - : The pt / caregiver states he / she is not on anticoagulants. Home medication list is obtained from the facility SEP. - Exposure Risk Screening:: None identified. Vital Signs: 08/10 23:53 BP 110 / 62 LA Supine (auto/reg); Pulse 103 MON; Resp 22 S; Temp 98.3(O); Pulse Ox 92% cln on R/A; Weight 63.5 kg / 139.99 lbs (R); Height 5 ft. 8 in. (172.72 cm) (R); Pain 0/10; 08/11 02:22 BP 145 / 65 (auto/); af2 02:22 Pulse 98 MON; Pulse Ox 95% ; af2 03:22 BP 138 / 64 (auto/); af2 03:22 Pulse 94 MON; Pulse Ox 92% ; af2 08/10 23:53 Body Mass Index 21.29 (63.50 kg, 172.72 cm) cln MDM: 08/10 23:58 NS 0.9% 1000 ml IV at bolus once ordered. fg 23:58 Ondansetron 4 mg IVP once ordered. fg 23:58 IV Saline Lock ordered. fg 23:58 Undress patient appropriately for examination ordered. fg 23:58 pantoprazole 40 mg IV at bolus once ordered. fg 23:59 Basic Metabolic Profile Ordered. EDMS 23:59 CBC with Diff Ordered. EDMS 23:59 Cardiac Injury Profile Ordered. EDMS 23:59 Lipase Ordered. EDMS 23:59 Liver Profile Ordered. EDMS 23:59 Troponin Ordered. EDMS 23:59 Type & Screen Ordered. EDMS 23:59 Urinalysis Ordered. EDMS 23:59 Urine Culture Ordered. EDMS 23:59 NOTHING BY MOUTH+DIET ordered. EDMS 08/11 01:14 PROTHROMBIN TIME PROFILE\E\INR Ordered. EDMS 01:18 BED REQUEST+ADM ordered. EDMS 01:42 Financial registration complete. hs2 01:42 [facility] Payment Agreement was scanned into [employer] and attached to record. hs2 01:55 BED REQUEST+ADM ordered. EDMS 02:40 Admission / Observation Status ordered. EDMS 02:40 OTHER CUSTOM DIETS ordered. EDMS 02:44 HEMOGLOBIN & HEMATOCRIT Ordered. EDMS 02:44 BASIC METABOLIC PROFILE Ordered. EDMS 11:05 COMPLETE BLOOD COUNT Ordered. EDMS 13:33 T-Sheet-- Draft Copy was scanned into [employer] and attached to record. gb Administered Medications: 00:47 Drug: NS 0.9% 1000 ml [sodium chloride 0.9 % intravenous solution] Route: IV; Rate: af2 bolus; Site: right wrist; 00:47 Drug: Ondansetron 4 mg [ondansetron HCl 2 mg/mL intravenous solution (2 mL)] Route: af2 IVP; Site: right wrist; 00:47 Drug: pantoprazole 40 mg [pantoprazole 40 mg intravenous solution] Route: IV; Rate: af2 bolus; Site: right wrist; Signatures: Dispatcher [employer] EDMS Gage Jessica, [employer] Checker Unit deg Kyle Rodriguez RN RN dwg Susan Pelayo, Reg Reg gb Beatriz Townsend RN RN dsf F[place], Amber, RN RN af2 Shelly Vicente MD MD Tomeka Metzger, Reg Reg hs2 The chart was reviewed and I authenticate all verbal orders and agree with the evaluation and treatment provided.Corrections: (The following items were deleted from the chart) 01:14 08/10 23:59 PARTIAL THROMBOPLASTIN TIME+LAB ordered. EDMS EDMS 08/11 11:04 02:44 HEMOGLOBIN & HEMATOCRIT ordered. EDMS EDMS 11:05 02:44 HEMOGLOBIN & HEMATOCRIT ordered. EDMS EDMS Attachments: 01:42 [facility] [place] [place] Agreement hs2 13:33 T-Sheet-- Draft Copy gb Chart [facility]
--- NOTE | 2016-08-13 14:56 | EDDOCDS ---
Physician Documentation [facility] Name: Brooke Tanner Age: 85 yrs Sex: Female : 1930 Arrival Date: 08/10/2016 Time: 23:47 Bed Admit Hold Private MD: Kun Stevenson M.D. Disposition: 08/11/16 01:56 Hospitalization ordered by Yadira Stewart for Inpatient Admission. Preliminary diagnosis are Hematemesis, Unspecified injury of kidney. - Bed requested for 4 [place]. - Status is Inpatient Admission. dwg - Condition is Stable. - Problem is new. - Symptoms have improved. Historical: - Allergies: no known allergies; - Home Meds: 1. ranitidine HCl 150 mg Oral cap 1 cap 2 times per day 2. ondansetron HCl 4 mg Oral tab every 6 hours (Last dose: 08/10/2016 22:00) 3. Cozaar 100 mg Oral tab 1 tab once daily 4. Remeron 15 mg Oral tab 1 tab once daily 5. artificial tears(hypromellose) 0.3 % Opht drop 1 drop four times a day (Last dose: 08/10/2016 22:49) 6. metformin 500 mg Oral Tb24 1 tab once daily (Last dose: 08/10/2016 08:31) 7. Tylenol 325 mg Oral tab 2 tabs every 4 hours (Last dose: 08/10/2016 06:53) 8. Norvasc 5 mg oral tab 1 tab once daily 9. aspirin 81 mg Oral tab 1 tab once daily 10. metoprolol tartrate 100 mg Oral tab 1 tab once daily (Last dose: 08/10/2016 08:31) 11. fleets enema 1 unit daily as needed 12. Milk of Magnesia 2400 mg/10 ml Oral 10 mL once daily - PMHx: Hypercholesterolemia; Dementia; dysphagia; Diabetes - NIDDM: controlled; Depression; Hypertension; hyperlipidemia; - PSHx: COLOSTOMY; Colon Resection (2001); - Family history: Not pertinent. - : The pt / caregiver states he / she is not on anticoagulants. Home medication list is obtained from the facility SEP. - Exposure Risk Screening:: None identified. Vital Signs: 08/10 23:53 BP 110 / 62 LA Supine (auto/reg); Pulse 103 MON; Resp 22 S; Temp 98.3(O); Pulse Ox 92% cln on R/A; Weight 63.5 kg / 139.99 lbs (R); Height 5 ft. 8 in. (172.72 cm) (R); Pain 0/10; 08/11 02:22 BP 145 / 65 (auto/); af2 02:22 Pulse 98 MON; Pulse Ox 95% ; af2 03:22 BP 138 / 64 (auto/); af2 03:22 Pulse 94 MON; Pulse Ox 92% ; af2 08/10 23:53 Body Mass Index 21.29 (63.50 kg, 172.72 cm) cln MDM: 08/10 23:58 NS 0.9% 1000 ml IV at bolus once ordered. fg 23:58 Ondansetron 4 mg IVP once ordered. fg 23:58 IV Saline Lock ordered. fg 23:58 Undress patient appropriately for examination ordered. fg 23:58 pantoprazole 40 mg IV at bolus once ordered. fg 23:59 Basic Metabolic Profile Ordered. EDMS 23:59 CBC with Diff Ordered. EDMS 23:59 Cardiac Injury Profile Ordered. EDMS 23:59 Lipase Ordered. EDMS 23:59 Liver Profile Ordered. EDMS 23:59 Troponin Ordered. EDMS 23:59 Type & Screen Ordered. EDMS 23:59 Urinalysis Ordered. EDMS 23:59 Urine Culture Ordered. EDMS 23:59 NOTHING BY MOUTH+DIET ordered. EDMS 08/11 01:14 PROTHROMBIN TIME PROFILE\E\INR Ordered. EDMS 01:18 BED REQUEST+ADM ordered. EDMS 01:42 Financial registration complete. hs2 01:42 [facility] Payment Agreement was scanned into [employer] and attached to record. hs2 01:55 BED REQUEST+ADM ordered. EDMS 02:40 Admission / Observation Status ordered. EDMS 02:40 OTHER CUSTOM DIETS ordered. EDMS 02:44 HEMOGLOBIN & HEMATOCRIT Ordered. EDMS 02:44 BASIC METABOLIC PROFILE Ordered. EDMS 11:05 COMPLETE BLOOD COUNT Ordered. EDMS 13:33 T-Sheet-- Draft Copy was scanned into [employer] and attached to record. gb Administered Medications: 00:47 Drug: NS 0.9% 1000 ml [sodium chloride 0.9 % intravenous solution] Route: IV; Rate: af2 bolus; Site: right wrist; 00:47 Drug: Ondansetron 4 mg [ondansetron HCl 2 mg/mL intravenous solution (2 mL)] Route: af2 IVP; Site: right wrist; 00:47 Drug: pantoprazole 40 mg [pantoprazole 40 mg intravenous solution] Route: IV; Rate: af2 bolus; Site: right wrist; Signatures: Dispatcher [employer] EDMS Gage Jessica, Street Light Inspector Unit deg Kyle Rodriguez RN RN dwg Susan Pelayo, Reg Reg gb Beatriz Townsend RN RN dsf [place], Amber, RN RN af2 Shelly Vicente MD MD Tomeka Metzger, Reg Reg hs2 The chart was reviewed and I authenticate all verbal orders and agree with the evaluation and treatment provided.Corrections: (The following items were deleted from the chart) 01:14 08/10 23:59 PARTIAL THROMBOPLASTIN TIME+LAB ordered. EDMS EDMS 08/11 11:04 02:44 HEMOGLOBIN & HEMATOCRIT ordered. EDMS EDMS 11:05 02:44 HEMOGLOBIN & HEMATOCRIT ordered. EDMS EDMS Attachments: 01:42 [facility] [place] Payment Agreement hs2 13:33 T-Sheet-- Draft Copy gb Chart [facility]
--- NOTE | 2016-08-13 14:56 | EDDOCDS ---
Nurse's Notes [facility] Name: Brooke Tanner Age: 85 yrs Sex: Female : 1930 Arrival Date: 08/10/2016 Time: 23:47 Bed Admit Hold Private MD: Kun Stevenson M.D. Diagnosis: Hematemesis;Unspecified injury of kidney Presentation: 08/10 23:51 Presenting complaint: EMS states: pt sent from [facility] due to coffee ground emesis x 2 af2 days. Suicide/Homicide risk assessment- the patient denies having any suicidal and/or homicidal ideations and does not present with any other emotional, behavioral or mental health complaints. Status: Patient is not a digital service engineer or dependent. Transition of care: patient was received from [facility]. 23:51 Method Of Arrival: Ambulance af2 08/11 00:19 Adult Sepsis Screening: The patient does not have new or worsening altered mentation. af2 Patient has a respiratory rate of greater than or equal to 22 (1 point). Systolic blood pressure is greater than 100. Patient has a qSOFA score of 1- Negative Sepsis Screen. 00:19 Acuity: RANDAL Level 3 af2 Triage Assessment: 08/10 23:51 General: Appears in no apparent distress, comfortable, Behavior is appropriate for age, af2 cooperative. Pain: Denies pain. The patient is triaged at the bedside. See Assessment in Nurses Notes section of ED record. Neurological: Level of Consciousness is awake, alert, obeys commands, Oriented to person, place, time. Respiratory: Airway is patent Respiratory effort is even, unlabored. GI: Reports nausea, vomiting. Derm: Skin is normal. Historical: - Allergies: no known allergies; - Home Meds: 1. ranitidine HCl 150 mg Oral cap 1 cap 2 times per day 2. ondansetron HCl 4 mg Oral tab every 6 hours (Last dose: 08/10/2016 22:00) 3. Cozaar 100 mg Oral tab 1 tab once daily 4. Remeron 15 mg Oral tab 1 tab once daily 5. artificial tears(hypromellose) 0.3 % Opht drop 1 drop four times a day (Last dose: 08/10/2016 22:49) 6. metformin 500 mg Oral Tb24 1 tab once daily (Last dose: 08/10/2016 08:31) 7. Tylenol 325 mg Oral tab 2 tabs every 4 hours (Last dose: 08/10/2016 06:53) 8. Norvasc 5 mg oral tab 1 tab once daily 9. aspirin 81 mg Oral tab 1 tab once daily 10. metoprolol tartrate 100 mg Oral tab 1 tab once daily (Last dose: 08/10/2016 08:31) 11. fleets enema 1 unit daily as needed 12. Milk of Magnesia 2400 mg/10 ml Oral 10 mL once daily - PMHx: Hypercholesterolemia; Dementia; dysphagia; Diabetes - NIDDM: controlled; Depression; Hypertension; hyperlipidemia; - PSHx: COLOSTOMY; Colon Resection (2001); - Family history: Not pertinent. - : The pt / caregiver states he / she is not on anticoagulants. Home medication list is obtained from the facility MAR. - Exposure Risk Screening:: None identified. Screenin/12 00:12 Screening information is obtained from prior medical records. Fall risk: At risk due to dsf age, The following interventions are performed due to a positive Fall Risk Screen: Fall Risk is added to Special Handling on the patient Summary Screen. A Fall Risk Bracelet was applied to the patient. Side Rails are placed in the up position. A Call Anderson is given with instruction to call for help when getting out of bed. Fall Alert bracelet is placed on the patient. Assistance ADL's: Requires assistance with meal preparation, this assistance is provided by residence staff, bathing, assistance is provided by residence staff, dressing, assistance is provided by residence staff, toileting, assistance is provided by residence staff, ambulation, assistance is provided by residence staff, housework, assistance is provided by residence staff, medication administration, assistance is provided by residence staff. Abuse/DV Screen: The patient / caregiver reports he/she is: not in a situation that causes fear, pain or injury. Nutritional screening: No deficits noted. Advance Directives: Currently, there is a health care proxy, Carolyn Tanner. There is an active DNR order and the pt has a copy here at this time. home support is adequate. Assessment: 00:20 General: Appears in no apparent distress, comfortable, Behavior is appropriate for age, af2 cooperative. Pain: Denies pain. Neurological: Level of Consciousness is awake, alert, obeys commands, Oriented to person, place. Cardiovascular: Heart tones S1 S2 present. Respiratory: Airway is patent Respiratory effort is even, unlabored, Respiratory pattern is regular, symmetrical, Breath sounds are clear bilaterally. GI: Abdomen is non- distended Bowel sounds present X 4 quads. Abd is soft and non tender X 4 quads. Reports nausea, vomiting, coffee ground emesis. Derm: Skin is normal. 01:20 General: Appears in no apparent distress, comfortable, Behavior is appropriate for age, af2 cooperative. Neurological: Level of Consciousness is awake, alert, obeys commands, Oriented to person, place. Respiratory: Airway is patent Respiratory effort is even, unlabored. GI: Denies nausea. Derm: Skin is normal. 02:26 General: Appears in no apparent distress, comfortable, Behavior is appropriate for age, af2 cooperative. Neurological: Level of Consciousness is awake, alert, obeys commands, Oriented to person, place. Respiratory: Airway is patent Respiratory effort is even, unlabored. Derm: Skin is normal. 03:36 General: Appears in no apparent distress, comfortable, Behavior is appropriate for age, af2 cooperative. Neurological: Level of Consciousness is awake, alert, obeys commands. Respiratory: Airway is patent Respiratory effort is even, unlabored, Respiratory pattern is regular, symmetrical. Derm: Skin is normal. 04:17 General: Appears in no apparent distress, comfortable, Behavior is appropriate for age, af2 cooperative. Neurological: Level of Consciousness is awake, alert, obeys commands, Oriented to person, place. Respiratory: Airway is patent Respiratory effort is even, unlabored. Derm: Skin is normal. 04:42 General: report given to ana hines. for further documentation, refer to [facility].. af2 Vital Signs: 08/10 23:53 BP 110 / 62 LA Supine (auto/reg); Pulse 103 MON; Resp 22 S; Temp 98.3(O); Pulse Ox 92% cln on R/A; Weight 63.5 kg (R); Height 5 ft. 8 in. (172.72 cm) (R); Pain 0/10; 08/11 02:22 BP 145 / 65 (auto/); af2 02:22 Pulse 98 MON; Pulse Ox 95% ; af2 03:22 BP 138 / 64 (auto/); af2 03:22 Pulse 94 MON; Pulse Ox 92% ; af2 01/11 23:53 Body Mass Index 21.29 (63.50 kg, 172.72 cm) cln ED Course: 08/10 23:49 Patient visited by Lam Flynn, Sharepoint Consultant. ml3 23:49 Kun Stevenson is Private Physician. ml3 23:49 Anita Rojas RN is Primary Nurse. ml3 23:49 Patient moved to Waiting ml3 23:49 Patient moved to 8 ml3 23:54 Patient visited by Kindra Person PCA. cln 23:54 Pt greeted and oriented to ED. Patient advised of names of staff involved in care, cln location of call anderson, wait times and NPO status. Patient has correct armband on for positive identification. Placed in gown. Bed in low position. Call light in reach. Side rails up X 1. 23:56 Shelly Vicente MD is Attending Physician. fg 23:57 Patient visited by Shelly Vicente MD. fg 08/11 00:19 Triage Initiated af2 00:19 The patient / caregiver is instructed regarding the plan of care and ED course. Cardiac af2 monitor on. Pulse ox on. NIBP on. 00:19 Inserted saline lock: 20 gauge in right antecubital area and blood collected. The af2 patient tolerated the procedure well. 00:21 Patient visited by Anita Rojas RN. af2 00:48 Patient visited by Anita Rojas RN. af2 00:48 No procedures done that require assistance. af2 01:42 [facility] Payment Agreement was scanned into [employer] and attached to record. hs2 01:44 Patient visited by Anita Rojas RN. af2 01:47 Patient name changed from Brooke\S\\S\Mathous\S\ to Brooke\S\ \S\Mathous. EDMS 01:55 Yadira Stewart is Hospitalizing Provider. fg 01:56 Patient visited by Aniat Rojas RN. af2 01:56 Patient visited by Ainta Rojas RN. af2 02:27 Patient visited by Anita Rojas RN. af2 02:44 Patient moved to Admit Hold cz 03:37 Patient visited by Anita Rojas RN. af2 04:18 Patient visited by Anita Rojas RN. af2 04:42 Patient visited by Anita Rojas RN. af2 06:59 Primary Nurse role handed off by Anita Rojas RN mcp 09:03 notified of Patients O2 sats going down to 88% on RA with good pleth. Notified Aspen Raines RN. 12:38 Patient moved to 30 ct3 13:07 Patient moved to Admit Hold jo3 13:33 T-Sheet-- Draft Copy was scanned into [employer] and attached to record. gb Administered Medications: 00:47 Drug: NS 0.9% 1000 ml [sodium chloride 0.9 % intravenous solution] Route: IV; Rate: af2 bolus; Site: right wrist; 00:47 Drug: Ondansetron 4 mg [ondansetron HCl 2 mg/mL intravenous solution (2 mL)] Route: af2 IVP; Site: right wrist; 00:47 Drug: pantoprazole 40 mg [pantoprazole 40 mg intravenous solution] Route: IV; Rate: af2 bolus; Site: right wrist; Order Results: Lab Order: Basic Metabolic Profile; [facility] 08/11/16 00:36 Test: GLUCOSE, FASTING; Value: 198; Range: 83-110; Abnormal: Above high normal; Units: MG/DL; Status: F Test: BLOOD UREA NITROGEN; Value: 70; Range: 7-18; Abnormal: Above high normal; Units: MG/DL; Status: F Test: CREATININE FOR GFR; Value: 2.04; Range: 0.55-1.02; Abnormal: Above high normal; Units: MG/DL; Status: F Test: GLOMERULAR FILTRATION RATE; Value: 24.6; Range: >32; Abnormal: Below low normal; Status: F Test: SODIUM LEVEL; Value: 146; Range: 136-145; Abnormal: Above high normal; Units: MEQ/L; Status: F Test: POTASSIUM SERUM; Value: 4.8; Range: 3.5-5.1; Units: MEQ/L; Status: F Test: CHLORIDE LEVEL; Value: 107; Range: 98-107; Units: MEQ/L; Status: F Test: CARBON DIOXIDE LEVEL; Value: 21; Range: 21-32; Units: MEQ/L; Status: F Test: ANION GAP; Value: 18; Range: 8-16; Abnormal: Above high normal; Units: MEQ/L; Status: F Test: CALCIUM LEVEL; Value: 8.5; Range: 8.8-10.2; Abnormal: Below low normal; Units: MG/DL; Status: F Test Note: ; Units are mL/min/1.73 m2 Chronic Kidney Disease Staging per NKF: Stage I & II GFR >=60 Normal to Mildly Decreased Stage III GFR 30-59 Moderately Decreased Stage IV GFR 15-29 Severely Decreased Stage V GFR <15 Very Little GFR Left ESRD GFR <15 on FIRE INSPECTOR Lab Order: CBC with Diff; SPEC'M 08/11/16 00:14 Test: WHITE BLOOD COUNT; Value: 9.9; Range: 4.0-10.0; Units: K/mm3; Status: F Test: RED BLOOD COUNT; Value: 4.33; Range: 4.00-5.40; Units: M/mm3; Status: F Test: HEMOGLOBIN; Value: 12.5; Range: 12.0-16.0; Units: g/dl; Status: F Test: HEMATOCRIT; Value: 38.8; Range: 36.0-47.0; Units: %; Status: F Test: MEAN CORPUSCULAR VOLUME; Value: 89.6; Range: 80.0-96.0; Units: fl; Status: F Test: MEAN CORPUSCULAR HEMOGLOBIN; Value: 28.8; Range: 27.0-33.0; Units: pg; Status: F Test: MEAN CORPUSCULAR HGB CONC; Value: 32.2; Range: 32.0-36.5; Units: g/dl; Status: F Test: RED CELL DISTRIBUTION WIDTH; Value: 12.9; Range: 11.5-14.5; Units: %; Status: F Test: PLATELET COUNT, AUTOMATED; Value: 253; Range: 150-450; Units: k/mm3; Status: F Test: NEUTROPHILS %; Value: 86.1; Range: 36.0-66.0; Abnormal: Above high normal; Units: %; Status: F Test: LYMPH %; Value: 8.8; Range: 24.0-44.0; Abnormal: Below low normal; Units: %; Status: F Test: MONO %; Value: 2.9; Range: 0.0-5.0; Units: %; Status: F Test: EOS %; Value: 1.0; Range: 0.0-3.0; Units: %; Status: F Test: BASO %; Value: 0.2; Range: 0.0-1.0; Units: %; Status: F Test: LARGE UNSTAINED CELL %; Value: 1.0; Range: 0.0-4.0; Units: %; Status: F Test: NEUTROPHILS #; Value: 8.5; Range: 1.8-7.7; Abnormal: Above high normal; Units: K/mm3; Status: F Test: LYMPH #; Value: 0.9; Range: 1.5-4.5; Abnormal: Below low normal; Units: K/mm3; Status: F Test: MONO #; Value: 0.3; Range: 0.0-0.8; Units: K/mm3; Status: F Test: EOS #; Value: 0.1; Range: 0.0-0.50; Units: K/mm3; Status: F Test: BASO #; Value: 0.0; Range: 0.0-0.2; Units: K/mm3; Status: F Test: LARGE UNSTAINED CELL #; Value: 0.1; Range: 0.0-0.4; Units: K/mm3; Status: F Lab Order: Cardiac Injury Profile; SPEC'M 08/11/16 00:36 Test: CPK CREATINE PHOSPHOKINASE; Value: 25; Range: 26-192; Abnormal: Below low normal; Units: U/L; Status: F Test: CK-MB VALUE MASS; Value: 1.1; Range: 0.0-3.6; Units: NG/ML; Status: F Test: MB/CK RELATIVE INDEX; Value: 4.40; Range: < OR =4; Abnormal: Above high normal; Status: F Test Note: ; DIAGNOSIS CRITERIA MMB ng/ml Relative Index (RI) NON-AMI < or = 5 N/A LOPEZ ZONE > 5 < or = 4 AMI > 5 > 4 Lab Order: Lipase; SPEC'M 08/11/16 00:36 Test: LIPASE; Value: 61; Range: 73-393; Abnormal: Below low normal; Units: U/L; Status: F Lab Order: Liver Profile; SPEC'M 08/11/16 00:36 Test: AST/SGOT; Value: 6; Range: 15-37; Abnormal: Below low normal; Units: U/L; Status: F Test: ALT/SGPT; Value: 9; Range: 12-78; Abnormal: Below low normal; Units: U/L; Status: F Test: ALKALINE PHOSPHATASE; Value: 94; Range: 45-117; Units: U/L; Status: F Test: BILIRUBIN,TOTAL; Value: 0.6; Range: 0.2-1.0; Units: MG/DL; Status: F Test: BILIRUBIN,DIRECT; Value: 0.2; Range: 0.0-0.2; Units: MG/DL; Status: F Test: TOTAL PROTEIN; Value: 6.1; Range: 6.4-8.2; Abnormal: Below low normal; Units: GM/DL; Status: F Test: ALBUMIN; Value: 2.8; Range: 3.2-5.2; Abnormal: Below low normal; Units: GM/DL; Status: F Test: ALBUMIN/GLOBULIN RATIO; Value: 0.85; Range: 1.00-1.93; Abnormal: Below low normal; Status: F Lab Order: Troponin; SPEC'M 08/11/16 00:36 Test: TROPONIN I; Value: < 0.02; Range: < 0.10; Units: NG/ML; Status: F Test Note: ; Troponin I Reference Interval for Siemens [place] LOCI: 99th Percentile= 0.00-0.045 ng/ml Risk Stratification: <= 0.10 ng/ml Decreased Risk for Adverse Clinical Events. 0.10-1.50 ng/ml Increased Risk for Adverse Clinical Events. Evaluation of additional criterion and/or repeat testing in 2-6 hours is suggested to rule out myocardial damage. >= 1.50 ng/ml Indicative of Myocardial Injury. Lab Order: Type & Screen; SPEC'M 08/11/16 00:43 Test: BLOOD TYPE; Value: A POS; Status: F Test: AB SCREEN (INDIRECT TANVIR)GEL; Value: NEGATIVE; Status: F Lab Order: PROTHROMBIN TIME PROFILE\E\INR; SPEC'M 08/11/16 02:02 Test: PROTHROMBIN TIME; Value: 13.9; Range: 12.3-14.5; Units: SECONDS; Status: F Test: INR; Value: 1.06; Status: F Test Note: ; THERAPUTIC HUMAN INR VALUES INDICATIONS NORMAL RANGES PROPHYLAXIS/TREATMENT OF: VENOUS THROMBOSIS 2.0-3.0 PULMONARY EMBOLISM 2.0-3.0 PREVENTION OF SYSTEMIC EMBOLISM FROM: TISSUE HEART VALVES 2.0-3.0 ACUTE MYOCARDIAL INFARCTION 2.0-3.0 VALVULAR HEART DISEASE 2.0-3.0 ATRIAL FIBRILLATION 2.0-3.0 MECHANICAL VALVES(HIGH RISK) 2.5-3.5 RECURRENT MYOCARDIAL INFARCTION 2.5-3.5 Lab Order: HEMOGLOBIN & HEMATOCRIT; [facility]' 08/11/16 06:57 Test: HEMOGLOBIN; Value: 11.0; Range: 12.0-16.0; Abnormal: Below low normal; Units: g/dl; Status: F Test: HEMATOCRIT; Value: 33.2; Range: 36.0-47.0; Abnormal: Below low normal; Units: %; Status: F Lab Order: BASIC METABOLIC PROFILE; [facility] 08/11/16 06:57 Test: GLUCOSE, FASTING; Value: 159; Range: 83-110; Abnormal: Above high normal; Units: MG/DL; Status: F Test: BLOOD UREA NITROGEN; Value: 69; Range: 7-18; Abnormal: Above high normal; Units: MG/DL; Status: F Test: CREATININE FOR GFR; Value: 1.88; Range: 0.55-1.02; Abnormal: Above high normal; Units: MG/DL; Status: F Test: GLOMERULAR FILTRATION RATE; Value: 27.1; Range: >32; Abnormal: Below low normal; Status: F Test: SODIUM LEVEL; Value: 145; Range: 136-145; Units: MEQ/L; Status: F Test: POTASSIUM SERUM; Value: 4.3; Range: 3.5-5.1; Units: MEQ/L; Status: F Test: CHLORIDE LEVEL; Value: 111; Range: 98-107; Abnormal: Above high normal; Units: MEQ/L; Status: F Test: CARBON DIOXIDE LEVEL; Value: 19; Range: 21-32; Abnormal: Below low normal; Units: MEQ/L; Status: F Test: ANION GAP; Value: 15; Range: 8-16; Units: MEQ/L; Status: F Test: CALCIUM LEVEL; Value: 8.2; Range: 8.8-10.2; Abnormal: Below low normal; Units: MG/DL; Status: F Test Note: ; Units are mL/min/1.73 m2 Chronic Kidney Disease Staging per NKF: Stage I & II GFR >=60 Normal to Mildly Decreased Stage III GFR 30-59 Moderately Decreased Stage IV GFR 15-29 Severely Decreased Stage V GFR <15 Very Little GFR Left ESRD GFR <15 on FIRE INSPECTOR Lab Order: Fingerstick Blood Sugar; SPEC'M 08/11/16 11:31 Test: BEDSIDE GLUCOSE; Value: 128; Range: 83-110; Abnormal: Above high normal; Units: MG/DL; Status: F Outcome: 01:56 Decision to Hospitalize by Provider. fg 13:[address] [facility] Signatures: Dispatcher [employer] Kyle Ramirez RN Carolyn Gonzales RN RN mcp Zecher, Calvin, RN RN cz Barnhardt, Gloria, Reg Reg gb Gee, Lam, Sharepoint Consultant Unit ml3 Danielle Mejia,RN RN jo3 Sonia Raymundo, PIE BAKERY LABORER PIE BAKERY LABORER ct3 Beatriz Townsend,RN Danielle Stern,RN RN js13 Anita Rojas,RN RN af2 Shelly Vicente MD MD Tomeka Metzger, Reg Reg hs2 Raza, Kindra, PIE BAKERY LABORER PIE BAKERY LABORER cln Chart Complete MTDD
[2016-08-13 20:35] VITALS: BP 168/75
[2016-08-13] MEDS: MIRTAZAPINE 15 MG TAB PO SCH (21:00)
[2016-08-13] MEDS: SUCRALFATE 1 GM TAB PO SCH (21:00)
[2016-08-13] MEDS ORDERED: SENOKOT S TAB PO SCH (21:00)
[2016-08-14] MEDS: KCL 10MEQ IN D5/0.45NS 1000ML 1,000 ML IV SCH (03:15)
[2016-08-14 05:30] VITALS: BP 139/61
[2016-08-14 06:33] LABS: BASO % 0.2 % (0.0-1.0); EOS # 0.1 K/mm3 (0.0-0.50); EOS % 2.2 % (0.0-3.0); LARGE UNSTAINED CELL # 0.1 K/mm3 (0.0-0.4); LARGE UNSTAINED CELL % 1.5 % (0.0-4.0); LYMPH # 0.7 K/mm3 (1.5-4.5); LYMPH % 12.1 % (24.0-44.0); MEAN CORPUSCULAR HEMOGLOBIN 29.2 pg (27.0-33.0); MEAN CORPUSCULAR HGB CONC 32.1 g/dl (32.0-36.5); MEAN CORPUSCULAR VOLUME 90.9 fl (80.0-96.0); MONO # 0.4 K/mm3 (0.0-0.8); MONO % 5.9 % (0.0-5.0); NEUTROPHILS # 4.8 K/mm3 (1.8-7.7); NEUTROPHILS % 78.1 % (36.0-66.0); PLATELET COUNT, AUTOMATED 169 k/mm3 (150-450); RED CELL DISTRIBUTION WIDTH 12.9 % (11.5-14.5); WHITE BLOOD COUNT 6.1 K/mm3 (4.0-10.0)
[2016-08-14 06:38] LABS: CALCIUM LEVEL 7.6 MG/DL (8.8-10.2); CREATININE FOR GFR 1.02 MG/DL (0.55-1.02); GLOMERULAR FILTRATION RATE 54.8 (>32); POTASSIUM SERUM 3.3 MEQ/L (3.5-5.1)
[2016-08-14 07:43] LABS: MAGNESIUM LEVEL 1.2 MG/DL (1.8-2.4)
[2016-08-14] MEDS: KCL 10MEQ IN 100ML SWI (KRUN) 10 MEQ in APPROPRIATE DILUENT 1 EA IV SCH ×8 (08:08→13:17)
[2016-08-14] MEDS: SUCRALFATE 1 GM TAB PO SCH ×4 (09:00→20:23)
[2016-08-14] MEDS: DOCUSATE SODIUM 100 MG CAP PO SCH ×3 (09:00→20:22)
[2016-08-14] MEDS: METOPROLOL SUCC (TopROL XL) 50MG **XL** TAB PO SCH ×3 (09:00→11:43)
[2016-08-14] MEDS: PANTOPRAZOLE 40MG INJ (PROTONIX) (C9113) IV SCH (09:08)
[2016-08-14] MEDS: ONDANSETRON 4MG/2ML VIAL (J2405) IV PRN ×2 (09:41→16:16)
[2016-08-14 11:43] VITALS: BP 124/67
[2016-08-14] MEDS ORDERED: METO-207 PO (11:46)
[2016-08-14] MEDS ORDERED: PANT40TA2 PO (11:46)
[2016-08-14] MEDS ORDERED: SUCR1TA PO (11:46)
--- NOTE | 2016-08-14 12:00 | IPNPDOC ---
Assessment/Plan Date Seen The patient was seen on 08/14/16. Problems Problems: (1) TAMMI (acute kidney injury) Status: Acute Response to Treatment: Improving Problem Text: Renal Function improving with IVF, but sodium has gone up so I will adjust IVF 08/13 - COntinue IVF hydrationin effort to improve Na+. Switch to D51/2 NS 08/14 - D/C IVF today. Replace K+ with K Runs x 4 Replace Mag with Mag runs x 2 Encourage pos Plan to d/c back ot [facility] tomorrow (2) Vomiting Status: Acute Response to Treatment: Improving Problem Text: Dr. Nava saw patient in consultation (note not available yet , but per nursing report, he does not want to scope her) He added Carafate, but pt refusing all po meds. 08/13 - Taking liquids this am without vomiting or gagging. cOntinue IV protonix. Try to get her to take the Carafate. 08/14 - No further vomiting. Switch to po Protonix upon discharge and encourage Carafate (3) HTN (hypertension) Status: Chronic Problem Text: Pt refusing po meds - BP stable so far 08/13 - BP high currently - Took her MEtoprolol this am. Monitor trend and add meds as needed. 08/14 - BP variable - controlled this am (4) Anemia Status: Acute Response to Treatment: Worse Problem Text: Hgb has drifted down - likely dilutional Monitor trend 08/13 - Hgb has stabilized Plan / VTE VTE Prophylaxis Ordered?: Yes (Start SQ heparin today) Subjective Review of Systems CC/HPI The patient is a 85-year-old female admitted with a reason for visit of Vomiting ,Acute Kidney Injury. Events since last encounter PAtient not taking much by mouth, but is agreable to try to eat today Constitutional: Denies: Chills, Fever Pulmonary: Denies: Cough, Dyspnea Cardiovascular: Denies: Chest Pain, Orthopnea, Palpitations Gastrointestinal: Reports: Constipation, Denies: Abdominal Pain, Diarrhea, Nausea, Vomiting Objective Physical Examination CC/HPI The patient is a 85-year-old female admitted with a reason for visit of Vomiting ,Acute Kidney Injury. ENT Exam: Negative: Mucous membr. moist/pink (mucous membranes dry) Chest Exam: Positive: Clear to auscultation, Normal air movement Heart Exam: Positive: Rate Normal, Negative: Murmurs Abdomen Exam: Positive: Normal bowel sounds, Soft, Negative: Tenderness Extremity Exam: Negative: Edema Skin Exam: Negative: Nl turgor and temperature (poor skin turgor) Vital Signs/I&O Vital Signs Date Time Temp Pulse Resp B/P Pulse Ox O2 Delivery O2 Flow Rate FiO2 08/14/16 11:43 76 124/67 08/14/16 05:30 96.7 16 92 Room Air I&O- Last 24 Hours up to 6 AM 08/14/16 06:00 Intake Total 2742 ml Output Total 400 ml Balance 2342 ml Laboratory Data Labs 24H Laboratory Tests 2 08/13/16 16:29: Bedside Glucose (Misc Panel) 144H 08/13/16 20:33: Bedside Glucose (Misc Panel) 150H 08/14/16 06:14: Anion Gap 9, White Blood Count 6.1, Red Blood Count 3.58L, Hemoglobin 10.4L, Hematocrit 32.6L, Mean Corpuscular Volume 90.9, Mean Corpuscular Hemoglobin 29.2 , Mean Corpuscular Hemoglobin Concent 32.1, Red Cell Distribution Width 12.9, Platelet Count 169, Neutrophils (%) (Auto) 78.1H, Lymphocytes (%) (Auto) 12.1L, Monocytes (%) (Auto) 5.9H, Eosinophils (%) (Auto) 2.2, Basophils (%) (Auto) 0.2 , Neutrophils # (Auto) 4.8, Lymphocytes # (Auto) 0.7L, Monocytes # (Auto) 0.4, Eosinophils # (Auto) 0.1, Basophils # (Auto) 0.0, Blood Urea Nitrogen 34H, Creatinine 1.02, Sodium Level 149H, Potassium Level 3.3L, Chloride Level 118H, Carbon Dioxide Level 22, Calcium Level 7.6L, Glomerular Filtration Rate 54.8, Large Unclassified Cells # 0.1, Large Unclassified Cells % 1.5, Magnesium Level 1.2L 08/14/16 11:28: Bedside Glucose (Misc Panel) 140H CBC/BMP Laboratory Tests 08/14/16 06:14 Calcium Level 7.6 L, Red Blood Count 3.58 L, Mean Corpuscular Volume 90.9, Mean Corpuscular Hemoglobin 29.2, Mean Corpuscular Hemoglobin Concent 32.1, Red Cell Distribution Width 12.9, Neutrophils (%) (Auto) 78.1 H, Lymphocytes (%) (Auto) 12.1 L, Monocytes (%) (Auto) 5.9 H, Eosinophils (%) (Auto) 2.2, Basophils (%) ( Auto) 0.2, Neutrophils # (Auto) 4.8, Lymphocytes # (Auto) 0.7 L, Monocytes # ( Auto) 0.4, Eosinophils # (Auto) 0.1, Basophils # (Auto) 0.0 FSBS Laboratory Tests Test 08/13/16 16:29 08/13/16 20:33 08/14/16 11:28 Range/Units Bedside Glucose (Misc Panel) 144 150 140 83-110 MG/DL MANJU CANALES PA-C Aug 14, 2016 12:00
--- NOTE | 2016-08-14 12:12 | CR ---
DATE OF CONSULTATION: 08/11/2016 This is an 85-year white female transferred from [facility] for evaluation of hematemesis times one. The patient had some evidence of coffee-grounds. No complaints of abdominal pain. No fevers, night sweats, or shaking chills. PAST MEDICAL HISTORY: The patient has multiple medical problems includin. Diabetes mellitus. 2. Hypertension. 3. Hyperlipidemia. 4. Dementia. The patient has been off Aricept. 5. History of rectal carcinoma and has an ostomy. 6. History of deep vein thrombosis (DVT) in the left leg, not on anticoagulation. 7. Depression. SOCIAL HISTORY: Negative for cigarettes or alcohol. MEDICATIONS: Include: Tylenol, amlodipine, aspirin 81 mg a day, milk of magnesia, metformin, losartan, and Zofran. LABORATORY STUDIES: On admission shows a white count of 9900, hemoglobin and hematocrit is 12.5 and 38.8, platelets are 203,000. Hemoglobin 11 and hematocrit 33.2. BUN 70, creatinine is 2.0. Albumin 2.8. REVIEW OF SYSTEMS: Noncontributory at this time to the above problem. PHYSICAL EXAMINATION: GENERAL: This is a well-developed, well-nourished, white female, thin, in no acute distress. CHEST: Clear to auscultation. CARDIOVASCULAR: Examination showed a regular rhythm. No murmurs or gallops. Normal physiological split, S1, S2. ABDOMEN: Soft, nontender. No masses, guarding, or rebound. Ostomy noted on the left side. Bowel sounds are positive. ANALYSIS: Nausea, vomiting with some coffee-ground emesis times one. The patient appears quite stable and after discussion with the patient and her daughter, we have decided to treat her conservatively with medications and hold an upper endoscopy. IV hydration will be continued and the patient may be started on a diet. PLAN: 1. IV fluids. 2. Proton pump inhibitor (PPI) plus Carafate twice a day. 3. Zofran to be used for nausea. 4. The patient's hemoglobin and hematocrit should be followed. 5. If the patient has anymore evidence of coffee-ground vomiting or bleeding then we can reconsider the upper endoscopy.
[2016-08-14] MEDS ORDERED: MOM 30ML SUSPENSION UDC PO PRN (12:15)
[2016-08-14 14:00] VITALS: BP 155/65
[2016-08-14] MEDS: MAG SULF 1GM/100ML (MAG RUN) 1 GM in APPROPRIATE DILUENT 1 EA IV SCH ×2 (15:13→16:16)
[2016-08-14] MEDS: PANTOPRAZOLE 40MG TAB (PROTONIX) PO SCH (20:22)
[2016-08-14] MEDS: MIRTAZAPINE 15 MG TAB PO SCH (20:22)
[2016-08-14 22:00] VITALS: BP 121/59
[2016-08-15 06:00] VITALS: BP 120/58
[2016-08-15 06:10] LABS: BASO % 0.2 % (0.0-1.0); EOS # 0.2 K/mm3 (0.0-0.50); EOS % 2.3 % (0.0-3.0); LARGE UNSTAINED CELL # 0.1 K/mm3 (0.0-0.4); LYMPH # 0.9 K/mm3 (1.5-4.5); LYMPH % 11.3 % (24.0-44.0); MEAN CORPUSCULAR HEMOGLOBIN 29.6 pg (27.0-33.0); MEAN CORPUSCULAR HGB CONC 32.7 g/dl (32.0-36.5); MEAN CORPUSCULAR VOLUME 90.5 fl (80.0-96.0); MONO # 0.3 K/mm3 (0.0-0.8); MONO % 3.3 % (0.0-5.0); NEUTROPHILS # 6.4 K/mm3 (1.8-7.7); NEUTROPHILS % 81.9 % (36.0-66.0); PLATELET COUNT, AUTOMATED 192 k/mm3 (150-450); RED CELL DISTRIBUTION WIDTH 13.1 % (11.5-14.5); WHITE BLOOD COUNT 7.8 K/mm3 (4.0-10.0)
[2016-08-15 06:27] LABS: CALCIUM LEVEL 7.9 MG/DL (8.8-10.2); CREATININE FOR GFR 1.11 MG/DL (0.55-1.02); GLOMERULAR FILTRATION RATE 49.7 (>32); POTASSIUM SERUM 4.1 MEQ/L (3.5-5.1)
[2016-08-15] MEDS: PANTOPRAZOLE 40MG TAB (PROTONIX) PO SCH ×2 (09:00→09:16)
[2016-08-15] MEDS: DOCUSATE SODIUM 100 MG CAP PO SCH ×2 (09:00→09:24)
[2016-08-15] MEDS: SUCRALFATE 1 GM TAB PO SCH ×2 (09:00→09:15)
[2016-08-15] MEDS: METOPROLOL SUCC (TopROL XL) 50MG **XL** TAB PO SCH ×2 (09:17→10:48)
[2016-08-15 09:54] LABS: MAGNESIUM LEVEL 1.8 MG/DL (1.8-2.4)
[2016-08-15] MEDS: ONDANSETRON 4MG/2ML VIAL (J2405) IV PRN (12:55)
--- NOTE | 2016-09-15 16:54 | DSES ---
DATE OF ADMISSION: 08/11/2016 DATE OF DISCHARGE: 08/15/2016 BRIEF HISTORY AND PHYSICAL: The patient is an 85-year-old resident of [facility] who vomited several times and developed some coffee-ground emesis. She had been unable to keep food down for over 24 hours. She was found to be dehydrated but her hemoglobin was stable. Past medical history is significant for hypertension, hyperlipidemia, dementia, history of rectal cancer status post surgery with colostomy and vaginectomy, history of deep venous thrombosis - no longer on anticoagulation, history of diabetes and depression. Pertinent labs on admission: White count 9.9, hemoglobin 12.5, platelets 146,000, BUN 70, creatinine 2. HOSPITAL COURSE: The patient was admitted for coffee-ground emesis, acute kidney injury secondary to dehydration related to intractable nausea and vomiting. 1. Acute kidney injury. She was given intravenous (IV) fluids, the fluids were adjusted in an effort to resolve her hypernatremia that was developing. She also was given potassium and magnesium with intravenous potassium (K) runs and magnesium runs and by the date of discharge, her renal function had improved, BUN was 30, creatinine 1.1. 2. Coffee-ground emesis. The patient was seen by Dr. Nava in consultation and based on no recurrence of the coffee-ground emesis, the stability of her hemoglobin, he spoke with the patient and her daughter and they decided to treat her conservatively with medications and IV fluid hydration and hold off on upper endoscopy. She has been placed on proton pump inhibitor (PPI) and Carafate twice a day with Zofran as needed for nausea and again the IV fluid hydration. She was refusing many of her medications initially but will be discharged on the Protonix and Carafate and this should be encouraged when she gets back over to [facility]. 3. Hypertension. She was refusing most of her blood pressure medications but eventually did take her metoprolol and her blood pressure was fairly well controlled at the time of her discharge. 4. Anemia. Her hemoglobin did drift down some during the hospitalization, and this was felt to be dilutional from her IV fluids but did stabilize and was 12 on the date of discharge. 5. Dementia. The patient was confused often refusing medications but did agree to take them at times. Her nausea and vomiting had resolved. Her renal function had improved. Her vital signs were stable. She was eating without vomiting at the time of discharge. It will remain to be seen whether she will continue to take in enough to sustain herself as she does have advanced dementia and so her oral intake will need to be monitored. However, it was felt she was stable for transfer back to [facility]. DISPOSITION: The patient is stable for discharge back to [facility]. Medications: Metoprolol 50 mg daily, Protonix 40 mg twice a day, Carafate 1 gram twice a day, acetaminophen 650 mg every 4 hours as needed, Milk of Magnesia 30 mL daily as needed for constipation, Remeron 15 mg at bedtime, Zofran 4 mg every 6 hours as needed for nausea or vomiting, Fleets enema as needed. Aspirin was held as was her amlodipine and the ranitidine had been switched to the proton pump inhibitor (PPI). DISCHARGE DIAGNOSES: 1. Acute kidney injury secondary to dehydration. 2. Intractable nausea and vomiting. 3. Coffee-ground emesis. 4. Hypertension. 5. Dementia.
== END 2016-08-15 13:33 | DRG 684 ==
LOC: M ED 23:47 → M ED INP 08-11 02:36 → M MSPAV 08-11 13:25
PROVIDERS: ADMIT Internal Medicine Nephrology; ATTEND Internal Medicine Nephrology
DX: N17.9 Acute kidney failure, unspecified (principal); R11.10 Vomiting, unspecified; E11.9 Type 2 diabetes mellitus without complications; I10 Essential (primary) hypertension; E78.5 Hyperlipidemia, unspecified; F03.90 Unspecified dementia, unspecified severity, without behavioral disturbance, psychotic disturbance, mood disturbance, and anxiety; F32.9 Major depressive disorder, single episode, unspecified; F41.9 Anxiety disorder, unspecified; E86.0 Dehydration; Z93.3 Colostomy status; D64.9 Anemia, unspecified; Z90.710 Acquired absence of both cervix and uterus; Z79.82 Long term (current) use of aspirin; Z79.899 Other long term (current) drug therapy; Z85.048 Personal history of other malignant neoplasm of rectum, rectosigmoid junction, and anus; Z86.718 Personal history of other venous thrombosis and embolism; Z85.038 Personal history of other malignant neoplasm of large intestine; Z79.84 Long term (current) use of oral hypoglycemic drugs

== ENCOUNTER → 2016-08-10 | Outpatient (CLI) | payer MEDICARE, MEDICAID ==
[2016-08-10 07:58] LABS: MEAN CORPUSCULAR HEMOGLOBIN 28.9 pg (27.0-33.0); MEAN CORPUSCULAR HGB CONC 32.2 g/dl (32.0-36.5); MEAN CORPUSCULAR VOLUME 89.5 fl (80.0-96.0); RED CELL DISTRIBUTION WIDTH 13.5 % (11.5-14.5); WHITE BLOOD COUNT 15.1 K/mm3 (4.0-10.0)
== END ==
LOC: SKLAB4 01:06
PROVIDERS: ATTEND Family Medicine
DX: E11.9 Type 2 diabetes mellitus without complications (principal)

== ENCOUNTER → 2016-08-10 | Outpatient (REF) | payer MEDICARE, MEDICAID | LOC: SKLAB4 06:48 | PROVIDERS: ATTEND Family Medicine | DX: R11.2 Nausea with vomiting, unspecified (principal) ==

== ENCOUNTER → 2016-08-10 | Outpatient (REF) | payer MEDICARE, MEDICAID | LOC: SKLAB4 17:58 | PROVIDERS: ATTEND Family Medicine | DX: E11.9 Type 2 diabetes mellitus without complications (principal) ==

== ENCOUNTER → 2016-08-29 | Outpatient (REF) | payer MEDICARE, MEDICAID ==
[~2016-08-29] MED LIST changes: +ACET-654 PO; +ACET650S3 PR; +AMLO5TAB2 PO; +ARTISOL2 OU; +ASPI81TAEC PO; +ENEMENE3 PR; +GLUC1INJ11 INJ; +LOSA100T36 PO; +METF500T PO; +METO-207 PO; +METO-209 PO; +MILKSUS PO; +ONDA4TAB6 PO; +PANT40TA2 PO; +RANI150T PO; +REME15TA PO; +SUCR1TA PO
[2016-08-29 08:43] LABS: ANION GAP 10 MEQ/L (8-16); BLOOD UREA NITROGEN 11 MG/DL (7-18); CALCIUM LEVEL 7.9 MG/DL (8.8-10.2); CARBON DIOXIDE LEVEL 24 MEQ/L (21-32); CHLORIDE LEVEL 114 MEQ/L (98-107); CREATININE FOR GFR 0.73 MG/DL (0.55-1.02); GLOMERULAR FILTRATION RATE > 60.0 (>32); GLUCOSE, FASTING 87 MG/DL (83-110); POTASSIUM SERUM 3.9 MEQ/L (3.5-5.1); SODIUM LEVEL 148 MEQ/L (136-145)
[2016-08-29 09:22] LABS: BASO % 0.6 % (0.0-1.0); EOS % 1.2 % (0.0-3.0); LARGE UNSTAINED CELL # 0.1 K/mm3 (0.0-0.4); LARGE UNSTAINED CELL % 1.4 % (0.0-4.0); LYMPH # 0.8 K/mm3 (1.5-4.5); LYMPH % 19.9 % (24.0-44.0); MEAN CORPUSCULAR HEMOGLOBIN 28.3 pg (27.0-33.0); MEAN CORPUSCULAR HGB CONC 31.1 g/dl (32.0-36.5); MEAN CORPUSCULAR VOLUME 91.1 fl (80.0-96.0); MONO # 0.2 K/mm3 (0.0-0.8); NEUTROPHILS % 71.8 % (36.0-66.0); PLATELET COUNT, AUTOMATED 106 k/mm3 (150-450); WHITE BLOOD COUNT 4.2 K/mm3 (4.0-10.0)
== END ==
LOC: SKLAB4 10:41
PROVIDERS: ATTEND Family Medicine
DX: D64.9 Anemia, unspecified (principal); I10 Essential (primary) hypertension